=== PATIENT | male | born 1995 | race Caucasian/White ===

== ENCOUNTER 2020-07-16 18:52 | Emergency (ER) | payer MEDICAID, SELFPAY ==
[2020-07-16 19:02] VITALS: BP 149/102; PULSE 107; RESP 14; TEMP 36.6; O2SAT 96
[2020-07-16 20:08] LABS: Abs Immature Grans 0.02 10^3/uL (0.0-0.06); Absolute Basophil Count 0.03 10^3/uL (0.0-0.2); Absolute Eosinophil Count 0.21 10^3/uL (0.0-0.7); Absolute Lymphocyte Count 1.92 10^3/uL (1.2-3.4); Absolute Monocyte Count 1.27 10^3/uL (0.1-0.8); Absolute Neutrophil Count 4.72 10^3/uL (1.2-6.7); Basophils % 0.4; Eosinophils % 2.6; HCT 41.8 % (40.0-50.0); Immature Grans % 0.2; Lymphocytes % 23.5; MCH 29.1 pg (27.0-33.0); MCHC 33.5 % (32.0-36.0); MCV 86.9 fL (80-95); MPV 8.4 fL (8.0-11.0); Monocytes % 15.5; Neutrophils % 57.8; Nucleated RBC 0 %; Platelet Count 271 10^3/uL (130-400); RBC 4.81 10^6/uL (4.36-5.78); RDW 12.1 % (11.8-14.1); RDW-SD 38.8 fL; WBC 8.17 10^3/uL (4.4-10.8)
[2020-07-16 20:18] LABS: ALT 100 U/L (16-63); AST 44 U/L (15-37); Albumin 3.9 g/dL (3.4-5.0); Alkaline Phosphatase 79 U/L (46-116); Anion Gap 6.8 mmol/L (3-11); BUN 14 mg/dL (7-18); Bilirubin, Total 0.4 mg/dL (0.2-1.0); CO2 30.2 mmol/L (21.0-32.0); CREATININE 0.85 mg/dL (0.70-1.30); Chloride 102 mmol/L (98-107); Glucose 83 mg/dL (74-106); Lipase 48 U/L (73-393); Potassium 3.9 mmol/L (3.5-5.1); Sodium 139 mmol/L (136-145); Total Protein 7.4 g/dL (6.4-8.2)
--- NOTE | 2020-07-16 20:34 | DI.CT_ITS ---
EXAM: CT ABDOMEN PELVIS W CLINICAL HISTORY: left abd pain and lt flank pain, abnormal stool. TECHNIQUE: Imaging Protocol: Axial computed tomography images with coronal and sagittal reformatted images were created and reviewed CONTRAST MATERIAL: Intravenous: Omnipaque 350 Contrast volume:100 ml Oral: no COMPARISON: No exams were available for comparison FINDINGS: ABDOMEN: Lung Bases: Normal where visualized. Liver: Mild fatty infiltration no measurable mass. Gallbladder and biliary tract: Contracted gallbladder. No radiodense calculus or dilation. Pancreas: Normal density, no abnormal calcifications or inflammatory process. Spleen: Normal. Kidneys: Normal size, contour and axis. No radiodense stones or obstructive uropathy. No masses seen. Adrenal glands: No masses seen. Abdominal Aorta: Abdominal portion non-dilated. PELVIS: Bladder: Symmetric distention, no gross wall thickening. Bowel: No obstruction or bowel wall thickening. Normal appendix. Large quantity of stool. Peritoneal cavity: No ascites, collection or mesenteric inflammatory response. Bones: Remarkable. Reproductive organs: Within normal limits. Lymph nodes: Unremarkable. Impression: Large quantity of stool. No acute abnormality.. RADIATION DOSE DELIVERED: 921.32mGy.cm Total DLP DATA REPOSITORY: All CT scans at this facility are submitted to the National Radiology Data Registry (NRDR) Dose Index Registry (DIR) with the [employer] (ACR). RADIATION OPTIMIZATION: All CT scans at this facility use at least one of these dose optimization te chniques: automated exposure control; mA and/or kV adjustment per patient size (includes targeted exa ms where dose is matched to clinical indication); or iterative reconstruction.
[2020-07-16] MEDS: Omnipaque 350 MG/ML 100 ML BTL IJ (20:39)
[2020-07-16] MEDS: Normal Saline - Diluent 50 ML VIAL IV (20:39)
[2020-07-16] MEDS: Normal Saline Flush 10 ML SYR IVP (20:40)
--- NOTE | 2020-07-16 20:43 | W.ED.GENAD ---
Discharge Plan Disposition Patient Disposition: HOME Condition: Stable Discharge Details Clinical Impression: Abdominal pain Primary Care Provider: Wilbert Bedoya ED Provider: Neftali Stockton Home Meds and New Rx's Prescriptions: No Action buprenorphine-naloxone [Suboxone] 8-2 mg film 2 film BC Q24H Qty: 30 RF: 0 bupropion HCl [Wellbutrin XL] 300 mg tablet extended release 24 hr 300 mg PO QAM Qty: 30 RF: 11 multivitamin 1 EACH capsule 1 ea PO DAILY RF: 0 [place]-3S/Dha/Epa/Fish Oil [Fish Oil 1,000 mg Softgel] 1 EACH capsule 1 ea PO RF: 0 Discharge Instructions Additional Instructions: your cat scan did not show any concerning findings your liver function tests were minimally elevated, you should advise your primary care of this when you follow up in 1-2 weeks if you have severe worsening pain, persistent vomit or feel more ill return to the emergency department Discharge Data Discharge Date/Time-TO BE ENTERED AT DEPARTURE: 07/16/20 21:11 Medical Decision Making <Baron Hendrix MD - Last Filed: 08/08/20 23:51> 24-year-old male presents with intermittent abdominal pain for the past 2 months, worse over the past 6 days, with concern that he has GI nematode infection. Patient is diffusely tender and firm. Consider acute surgical pathology including bowel perforation. Plan to obtain CT of the abdomen pelvis. Plan to send stool specimen for pathology and will also send ova and parasites. Patient certainly does have anxiety about current condition. I provided reassurance. <Neftali Stockton MD - Last Filed: 07/16/20 21:04> pt's labs show mild increase in lfts otherwise unremarkble, hepatitis panel added. CT negative. When I enter the room the patient has his eyes closed in no distress and awakens to voice easily, and has no abdominal tenderness on exam. Given these findings feel he is stable for d/c. Will have him f/u with pcp and return precautions given Imaging Data Radiologic Study: Attestation: I personally reviewed and interpreted this imaging study as follows: Imaging: CT Scan Radiologist's impression: no acute findings Lab Data Lab results reviewed: Yes I reviewed the patient's lab results. HPI <Baron Hendrix MD - Last Filed: 08/08/20 23:51> General Mode of arrival: ambulatory. Date/Time Provider Initiated Documentation: 07/16/20 19:11. Limitations to Documentation: no limitations. Information obtained by: patient. HPI Narrative: 24-year-old male presents with chief complaint of concern for gastrointestinal worms. Patient states that he believes he has worms in his stool. Patient states he is noticed long thin stringy material in his bowel movements for some time. He bought a stool specimen today that contains some of this material. He also notes that he has abdominal pain. Pain is diffuse worse on the right upper abdomen and flank. Patient states he has had abdominal pain intermittently for months but that it has been worse over the past 6 days. He has no associated fevers. No diarrhea. No nausea or vomiting. Related Data Home Medications Medication Instructions Recorded Confirmed [place]-3S/Dha/Epa/Fish Oil [Fish 1 ea PO 11/13/17 08/12/19 Oil 1,000 mg Softgel] multivitamin 1 ea PO DAILY 01/05/18 08/12/19 buprenorphine 8 mg-naloxone 2 mg 2 film BC Q24H #30 each 02/19/20 02/19/20 sublingual film bupropion HCl 300 mg 24 hr tablet, 300 mg PO QAM #30 tab 02/19/20 02/19/20 extended release Previous Rx's Medication Instructions Recorded buprenorphine 8 mg-naloxone 2 mg 2 film BC Q24H #30 each 02/19/20 sublingual film bupropion HCl 300 mg 24 hr tablet, 300 mg PO QAM #30 tab 02/19/20 extended release Allergies Allergy/AdvReac Type Severity Reaction Status Date / Time No Known Allergies Allergy Unverified 07/16/20 19:06 General Stated Complaint: Abd Prob DORENE: 3 Review of Systems <Baron Hendrix MD - Last Filed: 08/08/20 23:51> All systems reviewed & are unremarkable except as noted in HPI and below Gastrointestinal Gastrointestinal: Reports as per HPI Genitourinary Genitourinary: Denies hematuria, Denies genital lesions, Denies genital pain, Denies dysuria, Denies penile discharge, Denies scrotal swelling, Denies testicular mass and Denies testicular pain Psychiatric Psychiatric: Reports anxiety PFSH <Baron Hendrix MD - Last Filed: 08/08/20 23:51> Family History Mother Depression Diabetes Substance abuse Father , age 56 Alcohol abuse Substance abuse Depression Diabetes Heart disease Sister No problems noted. Brother No problems noted. Social History Smoking/Tobacco Use Status: Current every day Tobacco Type: cigarettes Quit status: has quit before Alcohol Intake: never Drug use: Occasionally Caregiver/Support person: No Household members: spouse Housing: condominium Communication Needs: None Do you need help understanding health information?: Never Pets and animals: Yes Pets and animals: dog(s) Sexually active: Yes Do you think of yourself as: straight/heterosexual Current gender identity: male What is your relationship status?: living with partner How often do you talk on the phone with friends or family?: three or more times per week How often do you get together with friends or relatives?: once per week How often do you attend hinduism or mormonism services?: 1-3 times per year Do you belong to any clubs or organized social groups?: no Panel score (0-1 are the most socially isolated patients): 2 What type of physical activity do you participate in: decline to answer Duration: < 15 minutes/day Frequency: decline to answer Cammy/Jain: None Special cammy needs: No Seatbelt use: always Helmet use: Yes Helmet use: always Drive intox or ride w/intox commercial trailer truck driver: No Do you feel safe at home: Yes Do you feel safe in your relationship?: Yes Exam <Baron Hendrix MD - Last Filed: 08/08/20 23:51> Const General: cooperative and no acute distress HENMT Mouth: moist mucous membranes Eyes Conjunctivae: normal conjunctivae Sclera: normal sclerae Neck Neck: supple Resp Auscultation: clear to auscultation bilaterally, no rales, no rhonchi and no wheezes Cardio Rate: tachycardic Rhythm: regular rhythm Heart Sounds: no murmurs GI Inspection: non-distended Palpation: firm, no guarding, no masses and tender other (rt abd ) Auscultation: normal bowel sounds Skin General skin exam: no rashes or lesions noted Neuro General: patient alert, patient awake and tone normal Extrem General: no edema Psych Appearance: grossly normal Mental Status: mental status grossly normal Affect: anxious affect Course <Baron Hendrix MD - Last Filed: 08/08/20 23:51> Vital Signs Vital signs: Vital Signs Temperature 36.6 C 07/16/20 19:02 Pulse 107 H 07/16/20 19:02 Respiratory Rate 14 07/16/20 19:02 Blood Pressure 149/102 H 07/16/20 19:02 Pulse Oximetry 96 07/16/20 19:02 Temperature 36.6 C 07/16/20 19:02 Temperature Source Skin 07/16/20 19:02 Pulse 107 H 07/16/20 19:02 Respiratory Rate 14 07/16/20 19:02 Respiratory Effort Non-Labored 07/16/20 19:05 Blood Pressure 149/102 H 07/16/20 19:02 Blood Pressure Position Sitting 07/16/20 19:02 Pulse Oximetry 96 07/16/20 19:02 Oxygen Delivery Method Room Air 07/16/20 19:02 Oxygen Flow Rate 0 07/16/20 19:02 Pain Level 4 07/16/20 19:02 Lab/Test Results Lab/Test Results: Laboratory Tests Range/Units 07/16/20 07/16/20 19:56 19:56 WBC (4.4-10.8) 10^3/uL 8.17 RBC (4.36-5.78) 10^6/uL 4.81 Hgb (13.5-17.5) g/dL 14.0 Hct (40.0-50.0) % 41.8 MCV (80-95) fL 86.9 MCH (27.0-33.0) pg 29.1 MCHC (32.0-36.0) % 33.5 RDW (11.8-14.1) % 12.1 Plt Count (130-400) 10^3/uL 271 MPV (8.0-11.0) fL 8.4 Immature Gran % 0.2 Neutrophils % 57.8 Lymphocytes % 23.5 Monocytes % 15.5 Eosinophils % 2.6 Basophils % 0.4 Nucleated RBC % % 0 Absolute Neutrophils (1.2-6.7) 10^3/uL 4.72 Absolute Lymphocytes (1.2-3.4) 10^3/uL 1.92 Absolute Monocytes (0.1-0.8) 10^3/uL 1.27 H Absolute Eosinophils (0.0-0.7) 10^3/uL 0.21 Absolute Basophils (0.0-0.2) 10^3/uL 0.03 Sodium (136-145) mmol/L 139 Potassium (3.5-5.1) mmol/L 3.9 Chloride (98-107) mmol/L 102 Carbon Dioxide (21.0-32.0) mmol/L 30.2 Anion Gap (3-11) mmol/L 6.8 BUN (7-18) mg/dL 14 Creatinine (0.70-1.30) mg/dL 0.85 Estimated GFR/1.73 m2 (mL/min/1.73m2) >= 60.00 Glucose (74-106) mg/dL 83 Calcium (8.5-10.1) mg/dL 9.0 Total Bilirubin (0.2-1.0) mg/dL 0.4 AST (15-37) U/L 44 H ALT (16-63) U/L 100 H Alkaline Phosphatase (46-116) U/L 79 Total Protein (6.4-8.2) g/dL 7.4 Albumin (3.4-5.0) g/dL 3.9 Lipase (73-393) U/L 48 Sign Out <Baron Hendrix MD - Last Filed: 08/08/20 23:51> Sign Out Data: Sign Out Comment: Care signed out to Dr. Stockton. I spoke with him about initial ED presentation course. Plan at signout follow-up on labs, CT of the abdomen pelvis, reassess patient for disposition Last updated by Baron Hendrix MD at 07/16/20 20:46
--- NOTE | 2020-07-16 20:58 | DI.VRAD_ITS ---
PROCEDURE INFORMATION: Exam: CT Abdomen And Pelvis With Contrast Exam date and time: 07/16/2020 7:38 PM Age: 24 years old Clinical indication: Abdominal pain; Localized; Left TECHNIQUE: Imaging protocol: Computed tomography of the abdomen and pelvis with intravenous contrast. Radiation optimization: All CT scans at this facility use at least one of these dose optimization techniques: automated exposure control; mA and/or kV adjustment per patient size (includes targeted exams where dose is matched to clinical indication); or iterative reconstruction. Contrast material: [id number]; Contrast volume: 100 ml; Contrast route: INTRAVENOUS (IV); COMPARISON: No relevant prior studies available. FINDINGS: Liver: There is diffuse decrease in hepatic parenchymal density, consistent with mild fatty infiltration. No mass. Gallbladder and bile ducts: Normal. No calcified stones. No ductal dilation. Pancreas: Normal. No ductal dilation. Spleen: Normal. No splenomegaly. Adrenals: Normal. No mass. Kidneys and ureters: Normal. No hydronephrosis. Stomach and bowel: Unremarkable. No obstruction. No mucosal thickening. There is a moderate to large amount of stool in the colon. Appendix: Normal appendix. Intraperitoneal space: No free intraperitoneal gas. No ascites. Vasculature: Unremarkable. No abdominal aortic aneurysm. Lymph nodes: No adenopathy. Urinary bladder: Unremarkable as visualized. Reproductive: Unremarkable as visualized. Bones/joints: Multilevel Schmorl's nodes. No fracture. Soft tissues: Unremarkable. IMPRESSION: No acute findings. Dictated and Authenticated by: Edgar Sanchez MD. Ordering:ELADIA Draper MD
[2020-07-20 12:59] LABS: Hepatitis A Antibody IgM Negative (Negative); Hepatitis B Core Antibody Negative (Negative); Hepatitis B surface Ag Negative (Negative); Hepatitis C Ab w Rflx HCV PCR Negative (Negative)
--- NOTE | 2020-07-22 12:54 | NUR.NOTE ---
Nursing Note: PAtient called regarding all test results from ED visit. Patient instructed to refer to D/C instructions and contact medical records for all results.
== END 2020-07-16 21:11 | disposition home or self-care (01) ==
PROVIDERS: Student in an Organized Health Care Education/Training Program; Emergency Provider Emergency Medicine; PCP Family Medicine
DX: R10.11 Right upper quadrant pain (principal); R74.01 Elevation of levels of liver transaminase levels; R19.8 Other specified symptoms and signs involving the digestive system and abdomen
CPT/HCPCS: 36415; 80053; 83690; 86704; 86709; 86803; 87340; 99285; 74177; 85025; 87169; 87177; 99284; J3490

== ENCOUNTER 2021-12-15 17:31 | Emergency (ER) | payer MEDICAID, SELFPAY ==
--- NOTE | 2021-12-15 18:00 | NUR.NOTE ---
Nursing Note:Patient stated to [facility] that he could not wait any longer and was leaving without being seen. Might come back tomorrow. Lilly Stephens
== END 2021-12-15 17:58 | disposition left before discharge ==
PROVIDERS: Emergency Provider Physician Assistant; PCP Nurse Practitioner Family
DX: Z53.29 Procedure and treatment not carried out because of patient's decision for other reasons (principal)

== ENCOUNTER 2021-12-27 17:26 | Outpatient (REF) | payer MEDICAID, SELFPAY ==
[2021-12-29 14:21] LABS: Chlamydia Result Negative (Negative); GC Result Negative (Negative)
== END 2021-12-27 17:27 | disposition home or self-care (01) ==
LOC: LBN 17:26
PROVIDERS: PCP Nurse Practitioner Family; Visit Provider Family Medicine
DX: A74.9 Chlamydial infection, unspecified (principal)
CPT/HCPCS: 87491; 87591

== ENCOUNTER 2022-04-12 11:43 | Emergency (ER) | payer MEDICAID, SELFPAY ==
[2022-04-12 11:51] VITALS: BP 137/68; PULSE 85; RESP 16; TEMP 36.7; O2SAT 100
[2022-04-12 12:02] VITALS: RESP 16
--- NOTE | 2022-04-12 12:24 | W.ED.GENAD ---
Discharge Plan Disposition Patient Disposition: HOME Condition: Stable Discharge Details Clinical Impression: Encounter for issue of repeat prescription, Encounter for monitoring Suboxone maintenance therapy Primary Care Provider: Ronen Yi ED Provider: Ruma Yoder Home Meds and New Rx's Prescriptions: New buprenorphine-naloxone 8-2 mg tablet, sublingual 3 tab sublingual DAILY 7 Days Qty: 21 0RF Rx Instructions: Place 3 tabs under tongue x 7 days No Action multivitamin Tablet 1 tab PO DAILY Qty: 90 3RF omega 8-zds-rms-fish oil [Fish Oil] 60-90-500 mg capsule 1 cap PO DAILY Qty: 90 4RF dextroamphetamine-amphetamine [Adderall] 20 mg tablet 20 mg PO DAILY MDD 20mg Qty: 30 0RF [place]-3S/Dha/Epa/Fish Oil [Fish Oil 1,000 mg Softgel] 1 EACH capsule 1 ea PO buprenorphine-naloxone [Suboxone] 8-2 mg film 3 film BC Q24H Rx Instructions: place 1 film on inside of (each) cheek Discharge Instructions Instructions: Buprenorphine/Naloxone (Into the mouth) Additional Instructions: A prescription was sent to the pharmacy on file. Please do not use any illicit drugs while on this medication. Please take the medication as directed. Follow up with primary care provider in 3-5 days. Return to ED sooner if any worsening or concerns. Increase oral fluids. Referrals: Ronen Yi, DISTANCE EDUCATION COORDINATOR [Primary Care Provider] - 3 days Medical Decision Making 18-year-old male presents to the ER request for medication refill. He reports that he now has Suboxone for the last 48 hours. He was prescribed Suboxone by [facility] I was able to find a prescription which was written on April 06. He reports that he has an appointment for follow-up with the [facility] to continue his opioid dependence regimen. He has a past medical history of depression, opiate addiction, PTSD, insomnia, anxiety and history of alcohol dependence. Patient does endorse using fentanyl approximately 25 to 48 hours ago. I did discuss the risks and benefits. I did encourage not using any illicit drugs wellness medication he verbalizes understanding. He states that he has been on Suboxone for the last 5 years and is transitioning to a local clinic. I will prescribe him approximately 7 days of the Suboxone 3 tablets under the tongue I did verify the prescription that was written on the at [facility]. Patient verbalizes understanding. Medical Records Medical records reviewed: Yes I reviewed the patient's medical records. HPI General Mode of arrival: ambulatory. Date/Time Provider Initiated Documentation: 04/12/22 12:00. Limitations to Documentation: no limitations. Information obtained by: patient, RN notes reviewed and old records reviewed. HPI Narrative: 18-year-old male presents to the ER request for medication refill. He reports that he now has Suboxone for the last 48 hours. He was prescribed Suboxone by [facility] I was able to find a prescription which was written on April 06. He reports that he has an appointment for follow-up with the [facility] to continue his opioid dependence regimen. He has a past medical history of depression, opiate addiction, PTSD, insomnia, anxiety and history of alcohol dependence. Related Data Home Medications Medication Instructions Recorded Confirmed [place]-3S/Dha/Epa/Fish Oil [Fish 1 ea PO 11/13/17 12/27/21 Oil 1,000 mg Softgel] multivitamin 1 tab PO DAILY #90 tabs 03/24/21 04/12/22 omega 8-ccn-fte-fish oil 60 mg-90 1 cap PO DAILY #90 caps 03/24/21 04/12/22 mg-500 mg capsule (Fish Oil) dextroamphetamine-amphetamine 20 20 mg PO DAILY #30 tabs 03/28/22 04/12/22 mg tablet (Adderall) buprenorphine 8 mg-naloxone 2 mg 3 film buccal Q24H 04/12/22 04/12/22 sublingual film (Suboxone) buprenorphine 8 mg-naloxone 2 mg 3 tab sublingual DAILY 7 days #21 04/12/22 sublingual tablet tabs Previous Rx's Medication Instructions Recorded multivitamin 1 tab PO DAILY #90 tabs 03/24/21 omega 8-poo-sdm-fish oil 60 mg-90 1 cap PO DAILY #90 caps 03/24/21 mg-500 mg capsule (Fish Oil) dextroamphetamine-amphetamine 20 20 mg PO DAILY #30 tabs 03/28/22 mg tablet (Adderall) buprenorphine 8 mg-naloxone 2 mg 3 tab sublingual DAILY 7 days #21 04/12/22 sublingual tablet tabs Allergies Allergy/AdvReac Type Severity Reaction Status Date / Time No Known Allergies Allergy Verified 04/12/22 11:55 General Stated Complaint: GenMedical DORENE: 4 Review of Systems Narrative: Patient has no medical complaints here for prescription refill. 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 Brother No problems noted. Social History Smoking/Tobacco Use Status: Current every day Tobacco Type: cigarettes Tobacco: How many years used: 10 Quit status: has quit before Second Hand Exposure: Yes Smoking risk assessment performed?: Yes Alcohol Intake: never Drug use: Occasionally Substance use type: marijuana Caregiver/Support person: No Household members: none Housing: apartment Communication Needs: None Do you need help understanding health information?: Never Pets and animals: No Sexually active: Yes Do you think of yourself as: straight/heterosexual What is your relationship status?: living with partner How often do you talk on the phone with friends or family?: three or more times per week How often do you get together with friends or relatives?: once per week How often do you attend spiritism or judaism services?: 1-3 times per year Do you belong to any clubs or organized social groups?: no Panel score (0-1 are the most socially isolated patients): 2 What type of physical activity do you participate in: walking Duration: 30-45 minutes/day Frequency: decline to answer Cammy/Yarsani: None Special cammy needs: No Seatbelt use: always Helmet use: Yes Helmet use: always Drive intox or ride w/intox furniture mover driver: No Do you feel safe at home: Yes Do you feel safe in your relationship?: Yes Exam Narrative Exam Narrative: Constitutional: Alert and oriented x3. Appears stated age. Normal body habitus. Head: Normocephalic, no trauma. Eyes: Pupils PERRL, Red reflex noted, EOM's intact. Eyelids symmetrical without lesions, discharge, or swelling. Chest: RRR, Normal S1, S2, distal pulses intact. Resp: Lungs clear to auscultation bilaterally, no wheezes, rales, or rhonchi. Abdomen: Soft, non-distended, Normoactive bowel sounds all 4 quads. Musculoskeletal: Normal gait, 5/5 strength to all four extremities. Skin: No suspicious rashes or lesions. Capillary refill less than 2 sec. Neurologic: Cranial nerves II-XII intact. Alert and oriented x 3. Motor: No deficits noted. Sensory: Intact bilaterally all 4 extremities. Reflexes: DTR's intact bilaterally.. Hematologic/Lymphatic: No ecchymosis, no lymphadenopathy. Course Vital Signs Vital signs: Vital Signs Temperature 36.7 C 04/12/22 11:51 Pulse 85 04/12/22 11:51 Respiratory Rate 16 04/12/22 11:51 Blood Pressure 137/68 04/12/22 11:51 Pulse Oximetry 100 04/12/22 11:51 Temperature 36.7 C 04/12/22 11:51 Temperature Source Temporal Artery Scan 04/12/22 11:51 Pulse 85 04/12/22 11:51 Respiratory Rate 16 04/12/22 12:02 Respiratory Effort 04/12/22 12:02 Respiratory Depth Normal 04/12/22 12:02 Respiratory Pattern Normal 04/12/22 12:02 Blood Pressure 137/68 04/12/22 11:51 Blood Pressure Position Sitting 04/12/22 11:51 Pulse Oximetry 100 04/12/22 11:51 Oxygen Delivery Method Room Air 04/12/22 11:51 Oxygen Flow Rate 0 04/12/22 11:51 Pain Level 0 04/12/22 11:51 PAWSS Have you Been Recently Intoxicated or Drunk Within the Last 30 days?: Yes Have you Ever Experienced Previous Episodes of Alcohol Withdrawal?: No Have you ever Experienced Withdrawal Seizures?: No Have you ever Experienced Delirium Tremens(DT)s?: No Have you ever undergone Alcohol Rehabilitation Treatment (i.e, inpt ot outpatient treatment programs)?: No Have you ever Experienced Blackouts?: No Have you ever Combined Alcohol with other Downers within the last 90 days?: No Have you ever Combined Alcohol with any other Substance of Abuse during the last 90 days?: No Positive Blood Alcohol level on Presentation? [PCS.BAL]: No Evidence of Increased Autonomic Activity (i.e. HR>120, tremor, sweating, agitation, nausea)?: No Result: 1
[2022-04-12 12:35] VITALS: PULSE 72; RESP 16; O2SAT 99
== END 2022-04-12 12:35 | disposition home or self-care (01) ==
PROVIDERS: Emergency Provider Registered Nurse Emergency; PCP Nurse Practitioner Family
DX: F11.20 Opioid dependence, uncomplicated (principal)
CPT/HCPCS: 99283

== ENCOUNTER 2022-04-21 11:14 | Emergency (ER) | payer MEDICAID, SELFPAY ==
[2022-04-21 11:21] VITALS: BP 137/56; PULSE 85; RESP 18; TEMP 36.5; O2SAT 99
--- NOTE | 2022-04-21 12:05 | ED.GENADUL_ITS ---
Discharge Plan Disposition Patient Disposition: HOME Condition: Stable Discharge Details Clinical Impression: Encounter for monitoring Suboxone maintenance therapy, Encounter for issue of repeat prescription Primary Care Provider: Ronen Yi ED Provider: Gopal Sorenson Home Meds and New Rx's Prescriptions: New buprenorphine-naloxone [Suboxone] 8-2 mg film 3 film buccal Q24H 4 Days Qty: 12 0RF Rx Instructions: place 1 film on inside of (each) cheek Continued multivitamin Tablet 1 tab PO DAILY Qty: 90 3RF omega 0-dii-kcx-fish oil [Fish Oil] 60-90-500 mg capsule 1 cap PO DAILY Qty: 90 4RF dextroamphetamine-amphetamine [Adderall] 20 mg tablet 20 mg PO DAILY MDD 20mg Qty: 30 0RF [place]-3S/Dha/Epa/Fish Oil [Fish Oil 1,000 mg Softgel] 1 EACH capsule 1 ea PO Discontinued buprenorphine-naloxone [Suboxone] 8-2 mg film 3 film BC Q24H Rx Instructions: place 1 film on inside of (each) cheek Discharge Instructions Additional Instructions: Suboxone as directed. Follow-up with your new program on the as already scheduled at 1 PM. Please watch for new or worsening symptoms and return to the ER for any concerns. Discharge Data Discharge Date/Time-TO BE ENTERED AT DEPARTURE: 04/21/22 12:25 Medical Decision Making 26-year-old gentleman presents requesting Suboxone bridge prescription until he is evaluated on April 25 at [facility]. I was able to speak with the clinic to confirm his story. He believes giving him a 4-day supply is reasonable but as he has already received a 7-day supply from our ER I made it very clear to him that he cannot continue missing his appointments to expect refills from the ER as this is not acceptable especially with the medications such as Suboxone. Patient understands and is grateful. He has no acute medical concerns or complaints. Denies recent illness or trauma. Appears well, nontoxic Standard discharge and return precautions were provided. Patient understands, is agreeable to this plan, and has no additional questions or concerns upon di scharge. This documentation was generated using [employer] system, please disregard any oddities of phrase or misspellings. Medical Records Medical records reviewed: Yes I reviewed the patient's medical records. HPI General Mode of arrival: ambulatory . Date/Time Provider Initiated Documentation: 04/21/22 11:29 . Limitations to Documentation: no limitations . Information obtained by: patient . HPI Narrative: This is a 26-year-old gentleman, past medical history that includes opiate abuse now on Suboxone, depression, ADHD, anxiety, presenting to the ER requesting a refill of his Suboxone. He is in the process of relocating to this area and was seen at the [facility]. He is in the process of being evaluated by [facility] but states that they had to change his appointment. He was actually seen here in the ER last week and given a 7-day supply. He did give me permission to speak with the [facility]. He had an appointment today but missed the appointment and they have rescheduled him for intake on April 25. Patient states that his last dose was yesterday. He currently denies any acute medical conc erns or complaints. Denies any withdrawal symptoms. Denies recent illness or trauma. Related Data Home Medications Medication Instructions Recorded Confirmed [place]-3S/Dha/Epa/Fish Oil [Fish 1 ea PO 11/13/17 12/27/21 Oil 1,000 mg Softgel] multivitamin 1 tab PO DAILY #90 tabs 03/24/21 04/12/22 omega 1-vam-iph-fish oil 60 mg-90 1 cap PO DAILY #90 caps 03/24/21 04/12/22 mg-500 mg capsule (Fish Oil) dextroamphetamine-amphetamine 20 20 mg PO DAILY #30 tabs 03/28/22 04/12/22 mg tablet (Adderall) buprenorphine 8 mg-naloxone 2 mg 3 film buccal Q24H 4 days #12 ea 04/21/22 sublingual film (Suboxone) Previous Rx's Medication Instructions Recorded multivitamin 1 tab PO DAILY #90 tabs 03/24/21 omega 2-ybz-ctx-fish oil 60 mg-90 1 cap PO DAILY #90 caps 03/24/21 mg-500 mg capsule (Fish Oil) dextroamphetamine-amphetamine 20 20 mg PO DAILY #30 tabs 03/28/22 mg tablet (Adderall) buprenorphine 8 mg-naloxone 2 mg 3 film buccal Q24H 4 days #12 ea 04/21/22 sublingual film (Suboxone) Allergies Allergy/AdvReac Type Severity Reaction Status Date / Time No Known Allergies Allergy Verified 04/21/22 11:26 General Stated Complaint: Recheck DORENE: 4 Review of Systems Constitutional Constitutional: Denies fever(s) Cardiovascular Cardiovascular: Denies chest pain and Denies dyspnea Respiratory Respiratory: Denies cough and Denies dyspnea Gastrointestinal Gastrointestinal: Denies abdominal pain Integumentary/Breasts Skin/Breast: Denies rash PFSH All Active Problems Encounter for issue of repeat prescription (Acute) Encounter for monitoring Suboxone maintenance therapy (Acute) Abdominal pain (Acute) Cocaine abuse in remission (Acute) Depression (Chronic) Insomnia (Acute 09/16/13) PTSD (post-traumatic stress disorder) (Acute 09/16/13) Smoker (Acute 01/03/13) Adopted (Acute 09/16/13) Depression (Acute 09/16/13) Opiate addiction (Acute 09/16/13) Reactive cervical lymphadenopathy (Acute 01/03/13) TMJ arthralgia (Acute) Anxiety (Acute 11/22/13) 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 Brother No problems noted. Social History Smoking/Tobacco Use Status: Current every day Tobacco Type: cigarettes Tobacco: How many years used: 10 Quit status: has quit before Second Hand Exposure: Yes Smoking risk assessment performed?: Yes Alcohol Intake: never Drug use: Occasionally Substance use type: marijuana Caregiver/Support person: No Household members: none Housing: apartment Communication Needs: None Do you need help understanding health information?: Never Pets and animals: No Sexually active: Yes Do you think of yourself as: straight/heterosexual What is your relationship status?: living with partner How often do you talk on the phone with friends or family?: three or more times per week How often do you get together with friends or relatives?: once per week How often do you attend orthodoxy or jewish services?: 1-3 times per year Do you belong to any clubs or organized social groups?: no Panel score (0-1 are the most socially isolated patients): 2 What type of physical activity do you participate in: walking Duration: 30-45 minutes/day Frequency: decline to answer Cammy/Sabianist: None Special cammy needs: No Seatbelt use: always Helmet use: Yes Helmet use: always Drive intox or ride w/intox company truck driver: No Do you feel safe at home: Yes Do you feel safe in your relationship?: Yes Exam Const General: cooperative, healthy appearing, comfortable and no acute distress Orientation: alert and awake HENMT Head: normal to inspection, normocephalic and atraumatic Face and sinus: normal facial exam Mouth: moist mucous membranes Eyes General: appearance normal, both eyes and all related structures Conjunctivae: conjunctivae normal Neck Neck: normal visual inspection, full ROM, trachea midline and supple Resp Effort & Inspection: normal respiratory effort and able to speak in complete sentences Auscultation: clear to auscultation bilaterally Cardio Rate: regular rate Rhythm: regular rhythm GI Palpation: soft and nontender Skin General skin exam: no rashes or lesions noted Neuro General: patient alert, patient awake, patient oriented x3, moves all extremities and no focal motor deficits Cognition: normal cognition Speech: speech normal Gait: normal gait Psych Appearance: grossly normal Mental Status: mental status grossly normal Course Vital Signs Vital signs: Vital Signs Temperature 36.5 C 04/21/22 11:21 Pulse 85 04/21/22 11:21 Respiratory Rate 18 04/21/22 11:21 Blood Pressure 137/56 L 04/21/22 11:21 Pulse Oximetry 99 04/21/22 11:21 Temperature 36.5 C 04/21/22 11:21 Temperature Source Temporal Artery Scan 04/21/22 11:21 Pulse 85 04/21/22 11:21 Respiratory Rate 18 04/21/22 11:21 Respiratory Effort Non-Labored 04/21/22 11:28 Blood Pressure 137/56 L 04/21/22 11:21 Blood Pressure Position Sitting 04/21/22 11:21 Pulse Oximetry 99 04/21/22 11:21 Oxygen Delivery Method Room Air 04/21/22 11:21 Oxygen Flow Rate 0 04/21/22 11:21
--- NOTE | 2022-04-22 16:24 | CMACTNOTE_ITS ---
- If Service Date Differs Date of service: 04/21/22 Time of Service: 16:24 Care Management Activity Note Elroy presents in the ED requesting a Suboxone bridge prescription until he can be seen at [facility]. Elroy was previously seen in the ED on 04/12/22 and was provided a bridge prescription for Suboxone at that time. At the request of ED provider, GAGE telephones [facility] and speaks with Lyubov who advises Elroy had a 45 minute appointment this morning (04/21/2022) but showed up 45 minutes late for the appointment, so he was unable to be seen. Celina states Elroy was given a new appointment for Monday, April 25, 2022 at 1:00 pm. GAGE relays this information to ED provider and meets with Erloy to discuss barriers to getting to appointments. Elroy says he has reliable transportation but missed the appointment because he was confused about the time of today's appoint ment at [facility]. He knows his rescheduled appointment is for Monday at 1:00 pm and has it written down.
== END 2022-04-21 12:25 | disposition home or self-care (01) ==
PROVIDERS: Emergency Provider Physician Assistant; PCP Nurse Practitioner Family
DX: F11.20 Opioid dependence, uncomplicated (principal)
CPT/HCPCS: 99283

== ENCOUNTER 2022-06-10 13:28 | Emergency (ER) | payer MEDICAID, SELFPAY ==
[2022-06-10 13:31] VITALS: BP 141/69; PULSE 72; RESP 16; TEMP 36.4; O2SAT 100
--- NOTE | 2022-06-10 14:38 | ED.GENADUL_ITS ---
Discharge Plan Disposition Patient Disposition: HOME Condition: Stable Discharge Details Chief Complaint: DrugWithdr/MAT Clinical Impression: Opioid dependence Primary Care Provider: Ronen Yi ED Provider: Raul Wilkes Home Meds and New Rx's Prescriptions: No Action multivitamin Tablet 1 tab PO DAILY Qty: 90 3RF omega 1-nys-nra-fish oil [Fish Oil] 60-90-500 mg capsule 1 cap PO DAILY Qty: 90 4RF dextroamphetamine-amphetamine [Adderall XR] 20 mg capsule,extended release 24hr 20 mg PO DAILY MDD 20mg Qty: 28 0RF buprenorphine-naloxone 8-2 mg tablet, sublingual 8 tab SUBLINGUAL TID Label Comments: PLACE 3 TABLETS EVERY DAY UNDER THE TONGUE FOR 7 DAYS [place]-3S/Dha/Epa/Fish Oil [Fish Oil 1,000 mg Softgel] 1 EACH capsule 1 ea PO Discharge Instructions Instructions: Buprenorphine/Naloxone (Into the mouth) Additional Instructions: Please follow-up with your primary care physician. Please follow-up at clinic. Please return to the emergency department you have any worsening symptoms. Medical Decision Making 26-year-old male history of polysubstance abuse presents requesting a dose of Suboxone as he ran out of his prescription and missed his clinic appointment. Endorses that his clinic is open on Mondays and . Also requesting Suboxone prescription. I have informed patient that I am not trained to prescribe Suboxone and I have encouraged him to follow-up with his clinic and his primary care physician. I will give him a dose of Suboxone here. No evidence of withdrawal at this time such as lacrimation nausea vomiting hypertension tachycardia or acute distress. HPI General Date/Time Provider Initiated Documentation: 06/10/22 14:02 . HPI Narrative: 26-year-old male history of polysubstance abuse currently on Suboxone presents after missing his Suboxone dose and running out of his prescription. Patient endorses that he feels as if he is beginning to withdrawal. Says that his clinic opens on Monday and . Related Data Home Medications Medication Instructions Recorded Confirmed [place]-3S/Dha/Epa/Fish Oil [Fish 1 ea PO 11/13/17 04/28/22 Oil 1,000 mg Softgel] multivitamin 1 tab PO DAILY #90 tabs 03/24/21 06/10/22 omega 4-nlz-ijy-fish oil 60 mg-90 1 cap PO DAILY #90 caps 03/24/21 06/10/22 mg-500 mg capsule (Fish Oil) dextroamphetamine-amphetamine ER 20 mg PO DAILY #28 caps 05/26/22 06/10/22 20 mg 24hr capsule,extend release (Adderall XR) buprenorphine 8 mg-naloxone 2 mg 8 tab sublingual TID 06/10/22 06/10/22 sublingual tablet Previous Rx's Medication Instructions Recorded multivitamin 1 tab PO DAILY #90 tabs 03/24/21 omega 3-ocw-gxn-fish oil 60 mg-90 1 cap PO DAILY #90 caps 03/24/21 mg-500 mg capsule (Fish Oil) dextroamphetamine-amphetamine ER 20 mg PO DAILY #28 caps 05/26/22 20 mg 24hr capsule,extend release (Adderall XR) Allergies Allergy/AdvReac Type Severity Reaction Status Date / Time No Known Allergies Allergy Verified 06/10/22 13:35 General Stated Complaint: DrugWithdr/MAT DORENE: 4 Review of Systems Narrative: Review of Systems Constitutional: negative Eyes: negative ENT: negative Cardiovascular: negative Respiratory: negative Gastrointestinal: negative : negative Musculoskeletal: negative Skin: negative Neurologic: negative Psych: negative PFSH All Active Problems Opioid dependence (Acute) Abdominal pain (Acute) Cocaine abuse in remission (Acute) Depression (Chronic) Insomnia (Acute 09/16/13) PTSD (post-traumatic stress disorder) (Acute 09/16/13) Smoker (Acute 01/03/13) Adopted (Acute 09/16/13) Depression (Acute 09/16/13) Opiate addiction (Acute 09/16/13) Reactive cervical lymphadenopathy (Acute 01/03/13) TMJ arthralgia (Acute) Anxiety (Acute 11/22/13) 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 Brother No problems noted. Social History Smoking/Tobacco Use Status: Current every day Tobacco Type: cigarettes Tobacco: How many years used: 10 Quit status: has quit before Second Hand Exposure: Yes Smoking risk assessment performed?: Yes Alcohol Intake: never Drug use: Current Sobriety Substance use type: marijuana Caregiver/Support person: No Household members: none Housing: apartment Communication Needs: None Do you need help understanding health information?: Never Pets and animals: No Sexually active: Yes Do you think of yourself as: straight/heterosexual What is your relationship status?: living with partner How often do you talk on the phone with friends or family?: three or more times per week How often do you get together with friends or relatives?: once per week How often do you attend temple or presybeterian services?: 1-3 times per year Do you belong to any clubs or organized social groups?: no Panel score (0-1 are the most socially isolated patients): 2 What type of physical activity do you participate in: walking Duration: 30-45 minutes/day Frequency: decline to answer Cammy/Confucianist: None Special cammy needs: No Seatbelt use: always Helmet use: Yes Helmet use: always Drive intox or ride w/intox armor reconnaissance vehicle driver: No Do you feel safe at home: Yes Do you feel safe in your relationship?: Yes Exam Narrative Exam Narrative: Physical Examination General: alert, awake, cooperative, resting comfortably, no acute distress HEENT: normocephalic, atraumatic; PERRL, EOM intact, conjunctiva normal; no nasal discharge; moist mucous membranes, oral and pharyngeal mucosa normal, tolerating secretions Neck: supple, trachea midline; full ROM Chest: normal to inspection Respiratory: normal respiratory effort, speaking in full sentences, clear to auscultation, no wheezing, rales or rhonchi Cardiac: regular rate, regular rhythm, S1S2 intact, no murmurs rubs or gallops GI: abdomen soft, non-tender, non-distended; no palpable mass or hepatosplenomegaly Skin: no lesions, rashes or trauma appreciated Neuro: AAOx3, normal speech, moving all extremities Psych: Appropriate mood and affect Course Vital Signs Vital signs: Vital Signs Temperature 36.4 C L 06/10/22 13:31 Pulse 72 06/10/22 13:31 Respiratory Rate 16 06/10/22 13:31 Blood Pressure 141/69 H 06/10/22 13:31 Pulse Oximetry 100 06/10/22 13:31 Temperature 36.4 C L 06/10/22 13:31 Temperature Source Skin 06/10/22 13:31 Pulse 72 06/10/22 13:31 Respiratory Rate 16 06/10/22 13:31 Respiratory Effort Non-Labored 06/10/22 14:35 Respiratory Pattern Normal 06/10/22 14:35 Blood Pressure 141/69 H 06/10/22 13:31 Blood Pressure Position Sitting 06/10/22 13:31 Pulse Oximetry 100 06/10/22 13:31 Oxygen Delivery Method Room Air 06/10/22 13:31 Oxygen Flow Rate 0 06/10/22 13:31 Pain Level 2 06/10/22 13:31
== END 2022-06-10 15:27 | disposition home or self-care (01) ==
PROVIDERS: Emergency Provider Emergency Medicine; PCP Nurse Practitioner Family
DX: F11.20 Opioid dependence, uncomplicated (principal)
CPT/HCPCS: 99283

== ENCOUNTER 2022-06-12 14:00 | Emergency (ER) | payer MEDICAID, SELFPAY ==
[2022-06-12 14:04] VITALS: BP 158/82; PULSE 104; RESP 16; TEMP 36.9; O2SAT 100
--- NOTE | 2022-06-12 14:15 | ED.GENADUL_ITS ---
Discharge Plan Disposition Patient Disposition: HOME Condition: Stable Discharge Details Chief Complaint: DrugWithdr/MAT Clinical Impression: Opioid dependence Primary Care Provider: Ronen Yi ED Provider: Raul Wilkes Home Meds and New Rx's Prescriptions: No Action multivitamin Tablet 1 tab PO DAILY Qty: 90 3RF omega 7-drj-rak-fish oil [Fish Oil] 60-90-500 mg capsule 1 cap PO DAILY Qty: 90 4RF dextroamphetamine-amphetamine [Adderall XR] 20 mg capsule,extended release 24hr 20 mg PO DAILY MDD 20mg Qty: 28 0RF buprenorphine-naloxone 8-2 mg tablet, sublingual 3 tab SUBLINGUAL TID Label Comments: PLACE 3 TABLETS EVERY DAY UNDER THE TONGUE FOR 7 DAYS [place]-3S/Dha/Epa/Fish Oil [Fish Oil 1,000 mg Softgel] 1 EACH capsule 1 ea PO Discharge Instructions Instructions: Buprenorphine/Naloxone (Into the mouth) Additional Instructions: Please follow-up closely with your clinic, obtain a prescription as an outpatient. Please return to the emergency department for any worsening symptoms. Medical Decision Making 26-year-old male history of opioid abuse, presents requesting Suboxone dose as he missed his clinic appointment last week and has not been able to refill his home Suboxone prescription. Feeling generally unwell, no lacrimation no chills no vomiting however I treated this patient on Monday and told him to return for any worsening symptoms. I have counseled him extensively regarding the need for him to follow-up closely with his clinic and obtain an outpatient prescription for his medication. Patient will be going to the clinic tomorrow. No acute distress. Will be given a dose of Suboxone and discharged home. HPI General Date/Time Provider Initiated Documentation: 06/12/22 14:09 . HPI Narrative: 26-year-old male history of polysubstance abuse presents requesting Suboxone dose, missed clinic appointment last week and therefore has run out of his home Suboxone prescription, was seen here on Monday for dose given early symptoms of opioid withdrawal, currently having similar symptomatology today just feeling unwell. No nausea no vomiting no tearing no chills. Patient states that he will be going to clinic tomorrow and will have a refill for his prescription from that time forward. Related Data Home Medications Medication Instructions Recorded Confirmed [place]-3S/Dha/Epa/Fish Oil [Fish 1 ea PO 11/13/17 04/28/22 Oil 1,000 mg Softgel] multivitamin 1 tab PO DAILY #90 tabs 03/24/21 06/10/22 omega 9-cko-yik-fish oil 60 mg-90 1 cap PO DAILY #90 caps 03/24/21 06/10/22 mg-500 mg capsule (Fish Oil) dextroamphetamine-amphetamine ER 20 mg PO DAILY #28 caps 05/26/22 06/10/22 20 mg 24hr capsule,extend release (Adderall XR) buprenorphine 8 mg-naloxone 2 mg 3 tab sublingual TID 06/10/22 06/12/22 sublingual tablet Previous Rx's Medication Instructions Recorded multivitamin 1 tab PO DAILY #90 tabs 03/24/21 omega 2-mon-lta-fish oil 60 mg-90 1 cap PO DAILY #90 caps 03/24/21 mg-500 mg capsule (Fish Oil) dextroamphetamine-amphetamine ER 20 mg PO DAILY #28 caps 05/26/22 20 mg 24hr capsule,extend release (Adderall XR) Allergies Allergy/AdvReac Type Severity Reaction Status Date / Time No Known Allergies Allergy Verified 06/12/22 14:08 General Stated Complaint: DrugWithdr/MAT DORENE: 5 Review of Systems Narrative: Review of Systems Constitutional: negative Eyes: negative ENT: negative Cardiovascular: negative Respiratory: negative Gastrointestinal: negative : negative Musculoskeletal: negative Skin: negative Neurologic: negative Psych: negative PFSH All Active Problems Opioid dependence (Acute) Opioid dependence (Acute) Abdominal pain (Acute) Cocaine abuse in remission (Acute) Depression (Chronic) Insomnia (Acute 09/16/13) PTSD (post-traumatic stress disorder) (Acute 09/16/13) Smoker (Acute 01/03/13) Adopted (Acute 09/16/13) Depression (Acute 09/16/13) Opiate addiction (Acute 09/16/13) Reactive cervical lymphadenopathy (Acute 01/03/13) TMJ arthralgia (Acute) Anxiety (Acute 11/22/13) Attention deficit disorder predominant inattentive type (Acute 12/26/14) Depression (Acute 12/26/14) reacted poorly to fluoxetine - jittery History of alcohol dependence (Acute 11/03/17) History of opioid abuse (Acute 11/03/17) Jaw pain (Acute 02/14/14) Paranoia (Acute 06/16/15) admit [facility]- 05/30 Tobacco use (Acute 12/04/17) Medical History Family history of coronary artery disease Family history of diabetes mellitus (DM) Family History Mother Depression Diabetes Substance abuse Father , age 56 Alcohol abuse Substance abuse Depression Diabetes Heart disease Sister No problems noted. Brother No problems noted. Social History Smoking/Tobacco Use Status: Current every day Tobacco Type: cigarettes Tobacco: How many years used: 10 Quit status: has quit before Second Hand Exposure: Yes Smoking risk assessment performed?: Yes Alcohol Intake: never Drug use: Current Sobriety Substance use type: marijuana Caregiver/Support person: No Household members: none Housing: apartment Communication Needs: None Do you need help understanding health information?: Never Pets and animals: No Sexually active: Yes Do you think of yourself as: straight/heterosexual What is your relationship status?: living with partner How often do you talk on the phone with friends or family?: three or more times per week How often do you get together with friends or relatives?: once per week How often do you attend nondenominational or anglican services?: 1-3 times per year Do you belong to any clubs or organized social groups?: no Panel score (0-1 are the most socially isolated patients): 2 What type of physical activity do you participate in: walking Duration: 30-45 minutes/day Frequency: decline to answer Cammy/Mosque: None Special cammy needs: No Seatbelt use: always Helmet use: Yes Helmet use: always Drive intox or ride w/intox 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 Do you feel safe at home: Yes Do you feel safe in your relationship?: Yes Exam Narrative Exam Narrative: Physical Examination General: alert, awake, cooperative, resting comfortably, no acute distress HEENT: normocephalic, atraumatic; PERRL, EOM intact, conjunctiva normal; no nasal discharge; moist mucous membranes, oral and pharyngeal mucosa normal, tolerating secretions Neck: supple, trachea midline; full ROM Chest: normal to inspection Respiratory: normal respiratory effort, speaking in full sentences, clear to auscultation, no wheezing, rales or rhonchi Cardiac: regular rate, regular rhythm, S1S2 intact, no murmurs rubs or gallops GI: abdomen soft, non-tender, non-distended; no palpable mass or hepatosplenomegaly Skin: no lesions, rashes or trauma appreciated Neuro: AAOx3, normal speech, moving all extremities Psych: Appropriate mood and affect Course Vital Signs Vital signs: Vital Signs Temperature 36.9 C 06/12/22 14:04 Pulse 104 H 06/12/22 14:04 Respiratory Rate 16 06/12/22 14:04 Blood Pressure 158/82 H 06/12/22 14:04 Pulse Oximetry 100 06/12/22 14:04 Temperature 36.9 C 06/12/22 14:04 Temperature Source Temporal Artery Scan 06/12/22 14:04 Pulse 104 H 06/12/22 14:04 Respiratory Rate 16 06/12/22 14:04 Respiratory Effort Non-Labored 06/12/22 14:06 Blood Pressure 158/82 H 06/12/22 14:04 Blood Pressure Position Sitting 06/12/22 14:04 Pulse Oximetry 100 06/12/22 14:04 Oxygen Delivery Method Room Air 06/12/22 14:04 Oxygen Flow Rate 0 06/12/22 14:04 Pain Level 0 06/12/22 14:04
[2022-06-12] MEDS: Buprenorphine/Naloxone 12 mg/3 mg FILM 1 EACH SL (14:18)
== END 2022-06-12 14:24 | disposition home or self-care (01) ==
PROVIDERS: Emergency Provider Emergency Medicine; PCP Nurse Practitioner Family
DX: F11.20 Opioid dependence, uncomplicated (principal); F17.210 Nicotine dependence, cigarettes, uncomplicated
CPT/HCPCS: 99283; 99284

== ENCOUNTER 2022-08-18 06:42 | Emergency (ER) | payer MEDICAID, SELFPAY ==
[2022-08-18 06:45] VITALS: BP 157/75; PULSE 98; RESP 18; TEMP 37.1; O2SAT 100
--- NOTE | 2022-08-18 07:03 | ED.GENADUL_ITS ---
Discharge Plan Disposition Patient Disposition: HOME Condition: Improving Discharge Details Chief Complaint: OD/Poison Clinical Impression: Skin irritation Primary Care Provider: Ronen Yi ED Provider: Raul Wilkes Home Meds and New Rx's Prescriptions: No Action multivitamin Tablet 1 tab PO DAILY Qty: 90 3RF omega 1-rjh-bog-fish oil [Fish Oil] 60-90-500 mg capsule 1 cap PO DAILY Qty: 90 4RF dextroamphetamine-amphetamine [Adderall XR] 20 mg capsule,extended release 24hr 20 mg PO DAILY MDD 20mg Qty: 28 0RF buprenorphine-naloxone 8-2 mg tablet, sublingual 3 tab SUBLINGUAL TID Label Comments: PLACE 3 TABLETS EVERY DAY UNDER THE TONGUE FOR 7 DAYS [place]-3S/Dha/Epa/Fish Oil [Fish Oil 1,000 mg Softgel] 1 EACH capsule 1 ea PO Discharge Instructions Additional Instructions: Please follow-up with your primary care physician. Please rinse with warm clean water. Medical Decision Making 26-year-old male presents with subjective skin irritation he believes someone is putting bleach into his shampoo. Patient has no skin lesions that are visible. No respiratory distress. Patient is normotensive no hypoxia. Normal voice tolerating secretions. Patient requesting that we test his shampoo bottle for bleach. I counseled patient that we are not toxicologic testing center and do not have the capabilities to test his shampoo. Counseled him to continue to rinse with clean fresh water to help with skin irritation. Will dose dexamethasone for subjective symptomatology. No evidence of chemical burn or chemical respiratory irritation. HPI General Date/Time Provider Initiated Documentation: 08/18/22 06:44 . HPI Narrative: 26-year-old male presents with skin irritation he believes someone is putting bleach in his shampoo. Related Data Home Medications Medication Instructions Recorded Confirmed [place]-3S/Dha/Epa/Fish Oil [Fish 1 ea PO 11/13/17 04/28/22 Oil 1,000 mg Softgel] multivitamin 1 tab PO DAILY #90 tabs 03/24/21 06/10/22 omega 3-gro-tsz-fish oil 60 mg-90 1 cap PO DAILY #90 caps 03/24/21 06/10/22 mg-500 mg capsule (Fish Oil) buprenorphine 8 mg-naloxone 2 mg 3 tab sublingual TID 06/10/22 06/12/22 sublingual tablet dextroamphetamine-amphetamine ER 20 mg PO DAILY #28 caps 07/22/22 20 mg 24hr capsule,extend release (Adderall XR) Previous Rx's Medication Instructions Recorded multivitamin 1 tab PO DAILY #90 tabs 03/24/21 omega 6-izr-vab-fish oil 60 mg-90 1 cap PO DAILY #90 caps 03/24/21 mg-500 mg capsule (Fish Oil) dextroamphetamine-amphetamine ER 20 mg PO DAILY #28 caps 07/22/22 20 mg 24hr capsule,extend release (Adderall XR) Allergies Allergy/AdvReac Type Severity Reaction Status Date / Time No Known Allergies Allergy Verified 06/12/22 14:08 General Stated Complaint: OD/Poison DORENE: 3 Review of Systems Narrative: Review of Systems Constitutional: negative Eyes: negative ENT: negative Cardiovascular: negative Respiratory: negative Gastrointestinal: negative : negative Musculoskeletal: negative Skin: Skin irritation Neurologic: negative Psych: negative PFSH All Active Problems Skin irritation (Acute) Abdominal pain (Acute) Cocaine abuse in remission (Acute) Depression (Chronic) Insomnia (Acute 09/16/13) PTSD (post-traumatic stress disorder) (Acute 09/16/13) Smoker (Acute 01/03/13) Adopted (Acute 09/16/13) Depression (Acute 09/16/13) Opiate addiction (Acute 09/16/13) Reactive cervical lymphadenopathy (Acute 01/03/13) TMJ arthralgia (Acute) Anxiety (Acute 11/22/13) 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 Brother No problems noted. Social History Smoking/Tobacco Use Status: Current every day Tobacco Type: cigarettes Tobacco: How many years used: 10 Quit status: has quit before Second Hand Exposure: Yes Smoking risk assessment performed?: Yes Alcohol Intake: never Drug use: Daily Substance use type: marijuana Caregiver/Support person: No Household members: none Housing: apartment Communication Needs: None Do you need help understanding health information?: Never Pets and animals: No Sexually active: Yes Do you think of yourself as: straight/heterosexual What is your relationship status?: living with partner How often do you talk on the phone with friends or family?: three or more times per week How often do you get together with friends or relatives?: once per week How often do you attend denominational or evangelical services?: 1-3 times per year Do you belong to any clubs or organized social groups?: no Panel score (0-1 are the most socially isolated patients): 2 What type of physical activity do you participate in: walking Duration: 30-45 minutes/day Frequency: decline to answer Cammy/Rastafari: None Special cammy needs: No Seatbelt use: always Helmet use: Yes Helmet use: always Drive intox or ride w/intox snaker tractor driver: No Do you feel safe at home: Yes Do you feel safe in your relationship?: Yes Exam Narrative Exam Narrative: Physical Examination General: alert, awake, cooperative, appears anxious HEENT: normocephalic, atraumatic; PERRL, EOM intact, conjunctiva normal; no nasal discharge; moist mucous membranes, oral and pharyngeal mucosa normal, tolerating secretions Neck: supple, trachea midline; full ROM Chest: normal to inspection Respiratory: normal respiratory effort, speaking in full sentences, clear to auscultation, no wheezing, rales or rhonchi Cardiac: regular rate, regular rhythm, S1S2 intact, no murmurs rubs or gallops GI: abdomen soft, non-tender, non-distended; no palpable mass or hepatosplenomegaly Skin: no lesions, rashes or trauma appreciated Neuro: AAOx3, normal speech, moving all extremities Psych: Anxiety Course Vital Signs Vital signs: Vital Signs Temperature 37.1 C 08/18/22 06:45 Pulse 98 H 08/18/22 06:45 Respiratory Rate 18 08/18/22 06:45 Blood Pressure 157/75 H 08/18/22 06:45 Pulse Oximetry 100 08/18/22 06:45 Temperature 37.1 C 08/18/22 06:45 Temperature Source Tympanic 08/18/22 06:45 Pulse 98 H 08/18/22 06:45 Respiratory Rate 18 08/18/22 06:45 Respiratory Effort 08/18/22 06:48 Respiratory Depth Normal 08/18/22 06:48 Respiratory Pattern Normal 08/18/22 06:48 Blood Pressure 157/75 H 08/18/22 06:45 Blood Pressure Position Supine 08/18/22 06:45 Pulse Oximetry 100 08/18/22 06:45 Oxygen Delivery Method Room Air 08/18/22 06:45 Oxygen Flow Rate 0 08/18/22 06:45 Pain Level 0 08/18/22 06:45
[2022-08-18] MEDS: Dexamethasone 10 MG/ML VIAL IVP (07:10)
[2022-08-18 07:20] VITALS: BP 132/88; PULSE 78; RESP 18; TEMP 36.8; O2SAT 98
== END 2022-08-18 07:15 | disposition home or self-care (01) ==
LOC: ER 07:08
PROVIDERS: Emergency Provider Emergency Medicine; PCP Nurse Practitioner Family
DX: L98.8 Other specified disorders of the skin and subcutaneous tissue (principal)
CPT/HCPCS: 99283; 99282; J1100

== ENCOUNTER 2023-08-15 12:22 | Emergency (ER) | payer MEDICAID, SELFPAY ==
[2023-08-15 12:49] VITALS: BP 179/94; PULSE 74; RESP 20; TEMP 37; O2SAT 99
--- NOTE | 2023-08-15 12:53 | W.ED.GENAD ---
Discharge Plan Disposition Patient Disposition: Home Condition: Stable Discharge Details Clinical Impression: Difficulty refilling prescriptions Primary Care Provider: Ronen Yi ED Provider: Roland Patterson Home Meds and New Rx's Prescriptions: Continued buprenorphine 300 mg/1.5 mL solution, extended rel syringe 300 mg subcut QMONTH Qty: 1.5 0RF triamcinolone acetonide 0.1 % cream 1 applic topical BID Qty: 30 0RF dextroamphetamine-amphetamine 20 mg tablet 20 mg PO DAILY MDD 20mg Qty: 28 0RF Discharge Instructions Instructions: Buprenorphine/Naloxone (Into the mouth) Additional Instructions: You were seen in the emergency department for your request for Suboxone, you have multiple care providers in the community both at [facility], and [facility]- these facilities are open mid-week. This is not ideal use of the Emergency Room as there is no medical emergency. Please seek refills at your established suboxone providers. Referrals: [facility] [Provider Group] [facility] [Outside] Ronen Yi, SYSTEM CONFIGURATION SPECIALIST [Primary Care Provider] - Medical Decision Making This dictation utilizes [id number] dictation software and may contain unedited grammatical errors. 27 y/o M presents to ED today with a chief complaint of withdrawal from suboxone - subcutaneous shot has run out that he had been receiving from detox and he has not set up outpatient or PCP follow-up until today. Onset and characteristics include weeks onset, recent detox admit for opiate use. Patient has relevant history of opiate use. Family and social history: substance abuse history. Pertinent exam findings / vital signs include benign cardiopulmonary status, neuro intact, not agitated, stable vitals, nontoxic. Differential / pathologies of concern include inappropriate use of emergency department, refill request, opiate withdrawal. Diagnostic studies of: -none, no major complaints. Interventions of: -one dose of suboxone here. ED Course: Patient seen and discharged from triage. Findings not consistent with severe opiate withdrawal, patient has no other medical complaints. Disposition of Difficulty Refilling Prescriptions. Assessment/Plan: Counseled the patient on appropriate use of the emergency department for nonemergent issue while his other providers that have provided him Suboxone are open for business during normal business hours midweek days. I counseled him that we provided him 1 dose Suboxone and advised to follow-up by calling his primary care provider and to utilize the emergency room for emergency problems only. Patient verbalized understanding of the plan and return to ED criteria and engaged in shared decision making. HPI General Date/Time Provider Initiated Documentation: 08/15/23 12:38. HPI Narrative: 27 year-old male presents to ED today by POV/ambulating with a chief complaint of request for suboxone- states he was on monthly subcutaneous injections but has been out for a long time and the shot has worn off- he has PCP with [facility] who said they could not see him for 2 weeks for this issue, and was previously given a supply from [facility] with onset ongoing for weeks. Quality described as wants to get ahead of his withdrawals so he does not relapse, no radiation to chest pain, active heroin use, shakiness, nausea/vomiting, insomnia. Severity is described as moderate. Palliating factors include nothing specific attempted. Provoking factors include nothing specific. Events leading up to the incident/Associated Symptoms: Patient does not endorse any emergent medical condition. Patient not anticoagulated. Related Data Home Medications Medication Instructions Recorded Confirmed buprenorphine 300 mg/1.5 mL 300 mg (1.5 mL) subcut QMONTH #1.5 04/20/23 08/15/23 solution,exten.rel.subcutaneous mL syringe triamcinolone acetonide 0.1 % 1 applic topical BID #30 grams 04/20/23 08/15/23 topical cream dextroamphetamine-amphetamine 20 20 mg PO DAILY #28 tabs 05/18/23 08/15/23 mg tablet Previous Rx's Medication Instructions Recorded buprenorphine 300 mg/1.5 mL 300 mg (1.5 mL) subcut QMONTH #1.5 04/20/23 solution,exten.rel.subcutaneous mL syringe triamcinolone acetonide 0.1 % 1 applic topical BID #30 grams 04/20/23 topical cream dextroamphetamine-amphetamine 20 20 mg PO DAILY #28 tabs 05/18/23 mg tablet Allergies Allergy/AdvReac Type Severity Reaction Status Date / Time No Known Allergies Allergy Verified 08/15/23 12:52 General Stated Complaint: Recheck DORENE: 4 Review of Systems All systems reviewed & are unremarkable except as noted in HPI and below PFSH All Active Problems Difficulty refilling prescriptions (Acute) Nasal septal deviation (Acute) Abnormal stools (Acute) Abdominal pain (Acute) Cocaine abuse in remission (Acute) Depression (Chronic) Insomnia (Acute 12/02/13) PTSD (post-traumatic stress disorder) (Acute 09/16/13) Smoker (Acute 01/03/13) Adopted (Acute 09/16/13) Depression (Acute 09/16/13) Opiate addiction (Acute 09/16/13) Reactive cervical lymphadenopathy (Acute 01/03/13) TMJ arthralgia (Acute) Anxiety (Acute 11/22/13) 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 Brother No problems noted. Social History Smoking/Tobacco Use Status: Current every day Tobacco Type: cigarettes Tobacco: How many years used: 10 Quit status: has quit before Second Hand Exposure: Yes Smoking risk assessment performed?: Yes Alcohol Intake: never Drug use: Daily Substance use type: marijuana Caregiver/Support person: No Household members: none Housing: apartment Communication Needs: None Do you need help understanding health information?: Never Pets and animals: No Sexually active: Yes Do you think of yourself as: straight/heterosexual What is your relationship status?: living with partner How often do you talk on the phone with friends or family?: three or more times per week How often do you get together with friends or relatives?: once per week How often do you attend rastafarian or latter day services?: 1-3 times per year Do you belong to any clubs or organized social groups?: no Panel score (0-1 are the most socially isolated patients): 2 What type of physical activity do you participate in: walking Duration: 30-45 minutes/day Frequency: decline to answer Cammy/Cheondoism: None Special cammy needs: No Seatbelt use: always Helmet use: Yes Helmet use: always Drive intox or ride w/intox mobile lounge driver: No Do you feel safe at home: Yes Do you feel safe in your relationship?: Yes Exam Narrative Exam Narrative: GENERAL APPEARANCE: Well-nourished, non-toxic, awake and alert, atraumatic, no acute distress. SKIN: Warm, pink, dry, intact, without rashes/lesions/ulcerations. HEAD: Normocephalic, atraumatic, normal hair distribution for gender/age. EYES: Pupils PERRLA, EOMs intact without nystagmus, normal conjunctiva, no exudates on lids/lashes. ENT: Nares patent, no circumoral cyanosis, no facial swelling NECK: Supple, trachea midline, painless cervical ROM. LUNGS/CHEST: Non-labored respirations, normal A/P diameter, symmetrical expansion, no chest wall deformity HEART (CV/PV): No peripheral edema, no JVD. ABDOMEN: Soft, non-distended, no guarding. MSK: Normal ROM, no swelling/deformity to bilateral UEs or LEs, moving all extremities without weakness, no cyanosis, spine midline without tenderness, normal curvature. NEURO: Mental Status AAOx4 - alert to person, place, time, events No facial droop, no forehead involvement. Motor: No focal weakness - strength 5/5 in bilateral UEs and LEs, proximal and distal, symmetric. Sensory: sensation intact to light touch globally. Gait normal: patient ambulated without ataxia into ED room. PSYCH: euthymic, cooperative, pleasant, appropriate speech Course Vital Signs Vital signs: Vital Signs Temperature 37 C 08/15/23 12:49 Pulse 74 08/15/23 12:49 Respiratory Rate 20 08/15/23 12:49 Blood Pressure 179/94 H 08/15/23 12:49 Pulse Oximetry 99 08/15/23 12:49 Temperature 37 C 08/15/23 12:49 Temperature Source Oral 08/15/23 12:49 Pulse 74 08/15/23 12:49 Respiratory Rate 20 08/15/23 12:49 Blood Pressure 179/94 H 08/15/23 12:49 Blood Pressure Position Sitting 08/15/23 12:49 Pulse Oximetry 99 08/15/23 12:49 Oxygen Delivery Method Room Air 08/15/23 12:49 Oxygen Flow Rate 0 08/15/23 12:49
[2023-08-15] MEDS: Buprenorphine/Naloxone 8 mg/2 mg FILM 1 EACH SL (13:09)
== END 2023-08-15 13:11 | disposition home or self-care (01) ==
PROVIDERS: Emergency Provider Physician Assistant; PCP Nurse Practitioner Family
DX: F11.23 Opioid dependence with withdrawal (principal); F32.A Depression, unspecified; Z72.0 Tobacco use
CPT/HCPCS: 99283; 99284

== ENCOUNTER 2024-04-24 13:53 | Emergency (ER) | payer MEDICAID, SELFPAY ==
[2024-04-24 13:56] VITALS: BP 128/56; PULSE 60; RESP 16; TEMP 36.6; O2SAT 98
--- NOTE | 2024-04-24 14:00 | DI.US_ITS ---
Exam(s) US LOWER EXTREMITY VENOUS RT EXAM: US LOWER EXTREMITY VENOUS RT CLINICAL HISTORY: swelling right calf, pain into foot. TECHNIQUE: Lower extremity venous ultrasound performed using grayscale, color-flow, and spectral Do ppler analysis. COMPARISON: No exams were available for comparison FINDINGS: The common femoral, femoral and popliteal veins demonstrate normal compressibility, augmentation, and color Doppler. The posterior tibial veins are patent. No saphenous vein thrombosis or other superfi cial venous thrombosis is seen. No hematoma or Hernadez's cyst is seen. Normal appearing groin lymph n odes. Subcutaneous edema in lower legs. IMPRESSION: Soft tissue edema. No evidence of DVT. DATA REPOSITORY:
--- NOTE | 2024-04-24 14:04 | W.ED.GENAD ---
Discharge Plan Discharge Details Chief Complaint: Cellulitis Primary Care Provider: Ronen Yi ED Provider: Vidya Ojeda Home Meds and New Rx's Prescriptions: No Action buprenorphine 300 mg/1.5 mL solution, extended rel syringe 300 mg subcut QMONTH Qty: 1.5 0RF HPI General Date/Time Provider Initiated Documentation: 04/24/24 14:03. Limitations to Documentation: no limitations. Information obtained by: patient and RN notes reviewed. History of Present Illness 28 year old M presents to the emergency department with the chief complaint of laceration right ankle, erythema, pain, swelling, described as moderate, with intensity rated at 4. Quality is described as aching, and is localized to the right and lower extremity. Patient proximal (pain radiating into right calf). Patient started experiencing this day(s) and it has been constant. Immobilization improves symptom(s), Movement worsens symptoms . Patient notes no other symptoms.. Patient did receive the following treatments prior to arrival, none Related Data Home Medications Medication Instructions Recorded Confirmed buprenorphine 300 mg/1.5 mL 300 mg (1.5 mL) subcut QMONTH #1.5 04/20/23 04/24/24 solution,exten.rel.subcutaneous mL syringe Previous Rx's Medication Instructions Recorded buprenorphine 300 mg/1.5 mL 300 mg (1.5 mL) subcut QMONTH #1.5 04/20/23 solution,exten.rel.subcutaneous mL syringe Allergies Allergy/AdvReac Type Severity Reaction Status Date / Time No Known Allergies Allergy Verified 04/24/24 13:59 General Stated Complaint: Cellulitis DORENE: 3 Review of Systems Constitutional Constitutional: Reports as per HPI, Denies chills and Denies fever(s) Musculoskeletal Musculoskeletal: Reports as per HPI Integumentary/Breasts Skin/Breast: Reports as per HPI Neurologic Neurologic: Reports as per HPI and Denies sensory deficit Exam Const General: cooperative, healthy appearing, comfortable, no acute distress and well developed Nutritional Appearance: average body habitus and well nourished Orientation: alert and awake Resp Effort & Inspection: normal respiratory effort, able to speak in complete sentences and no respiratory distress Cardio Rate: regular rate Rhythm: regular rhythm Skin Trauma: laceration Neuro General: patient alert and patient awake Cognition: normal cognition Speech: speech normal Gait: antalgic Motor: muscle tone normal throughout and strength 5/5 throughout Sensory Exam: no sensory deficits noted Extrem Ankle/foot/toe images: 1. Area V-shaped flap laceration. Does not appear to be a deep wound, I am not able to visualize any tendon. Normal Mota test. 2+ distal pulses. Sensation is intact. Does have nonpitting edema in the foot and calf. He does have pain with palpation of the calf and a positive Homans' sign. Area around the wound is erythematous, warm and tender. No drainage. No palpable fluctuance. Course Vital Signs Vital signs: Vital Signs Temperature 36.6 C 04/24/24 13:56 Pulse 60 04/24/24 13:56 Respiratory Rate 16 04/24/24 13:56 Blood Pressure 128/56 L 04/24/24 13:56 Pulse Oximetry 98 04/24/24 13:56 Temperature 36.6 C 04/24/24 13:56 Pulse 60 04/24/24 13:56 Respiratory Rate 16 04/24/24 13:56 Blood Pressure 128/56 L 04/24/24 13:56 Pulse Oximetry 98 04/24/24 13:56 Pain Level 4 04/24/24 13:56 Medical Decision Making Patient is a pleasant 28-year-old male without significant past medical history presenting today with chief complaint of infection in the posterior aspect of the right ankle over the Achilles tendon. He reports that around 4 days ago, while ambulating, he stepped on a piece of glass from a broken sarahi jar. Denies other injury at the time of the incident. Denies any fevers or chills. States he does have some altered sensation in the calf which he attributes to swelling that has extended from the foot into the calf. However, he denies any altered sensation in the foot itself. Denies any significant pain. Has noted increased swelling and redness. Patient denies any IV drug use. On exam, patient appears nontoxic. He is resting comfortably no acute distress, hemodynamically stable. He has an area of erythema around a flap appearing laceration of the right Achilles. The Achilles is palpable, found to be intact with no abnormal Mota test. He has no calf tenderness with palpation. Sensation is intact but reported to be different than the other side. However, objectively I do not note a difference. He does have some surrounding erythema. 2+ distal pulses. Good range of motion of the ankle. Concern primarily for cellulitis associated with a wound in the posterior ankle. However, given the location and the onset of swelling, consider posttraumatic DVT, deeper space infection, will obtain baseline labs as well as ultrasound and x-ray. Discussed this with the patient who is in agreement. We also discussed imaging to ensure no retained foreign body. FINDINGS: The common femoral, femoral and popliteal veins demonstrate normal compressibility, augmentation, and color Doppler. The posterior tibial veins are patent. No saphenous vein thrombosis or other superficial venous thrombosis is seen. No hematoma or Hernadez's cyst is seen. Normal appearing groin lymph nodes. Subcutaneous edema in lower legs. IMPRESSION: Soft tissue edema. No evidence of DVT. Labs reviewed. No leukocytosis. Stable H&H. ESR within normal limits. CRP slightly elevated at 1.09. BONES: No acute fracture is present. No bony destructive lesion is seen. JOINTS: The ankle mortise is normally aligned. SOFT TISSUE: There is a defect at the skin surface posteriorly approximately 2.3 cm above the calcaneus on the lateral view. This likely reflects area of laceration. There is a 1-2 mm density in the soft tissues in this region which may represent a foreign body. There is soft tissue swelling posterior to the calcaneus which appears represent the Achilles tendon shadow. Please correlate clinically. If there is concern for Achilles tendon tear, MRI should be considered. IMPRESSION: 1. Findings of a soft tissue laceration approximately 2.3 cm above the calcaneus posteriorly. 2. 1-2 mm density in the soft tissues in this region 2.4 cm above the calcaneus which may represent a tiny foreign body. 3. Findings suggestive soft tissue thickening of the distal Achilles tendon. If there is concern for Achilles tendon tear, MRI should be considered. Awaiting call back from ortho. I did reevaluate the patient and I do not see any evidence to suggest a Achilles tendon rupture. However, given the location, area of tenderness and findings above, consider an infection in the Achilles tendon. Will obtain a CT to evaluate for infection as unable to obtain an MRI at this time. At the end of my shift, care transition to Lyubov Douglas NP, with CT and orthopedic evaluation pending. Patient has received some IV fluids as well as IV antibiotics. 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 Brother No problems noted. Social History Smoking/Tobacco Use Status: Current every day Tobacco Type: cigarettes Tobacco: How many years used: 10 Quit status: has quit before Second Hand Exposure: Yes Smoking risk assessment performed?: Yes Alcohol Intake: never Drug use: Occasionally Substance use type: crack/cocaine Caregiver/Support person: No Household members: none Housing: apartment Communication Needs: None Do you need help understanding health information?: Never Pets and animals: No Sexually active: Yes Do you think of yourself as: straight/heterosexual What is your relationship status?: living with partner How often do you talk on the phone with friends or family?: three or more times per week How often do you get together with friends or relatives?: once per week How often do you attend mandaen or congregational services?: 1-3 times per year Do you belong to any clubs or organized social groups?: no Panel score (0-1 are the most socially isolated patients): 2 What type of physical activity do you participate in: walking Duration: 30-45 minutes/day Frequency: decline to answer Cammy/Religious: None Special cammy needs: No Seatbelt use: always Helmet use: Yes Helmet use: always Drive intox or ride w/intox box truck driver: No Do you feel safe at home: Yes Do you feel safe in your relationship?: Yes Sign Out Sign Out Data: Sign Out Comment: Care transitioned with CT results and orthopedic consult pending. Concerned that laceration over achilles may have lead to deeper infection . Receiving IV abx, hemodynamically stable. Last updated by Vidya Ojeda PA at 04/24/24 16:37
--- NOTE | 2024-04-24 14:15 | DI.RAD_ITS ---
Exam(s) XR ANKLE RT COMPLETE EXAM: XR ANKLE RT COMPLETE CLINICAL HISTORY: laceration posterior right ankle, ?FB. TECHNIQUE: 2D digital imaging was performed of the right ankle. Three images were obtained. AP, la teral and oblique views were obtained. COMPARISON: No exams were available for comparison FINDINGS: BONES: No acute fracture is present. No bony destructive lesion is seen. JOINTS: The ankle mortise is normally aligned. SOFT TISSUE: There is a defect at the skin surface posteriorly approximately 2.3 cm above the calcane us on the lateral view. This likely reflects area of laceration. There is a 1-2 mm density in the s oft tissues in this region which may represent a foreign body. There is soft tissue swelling posteri or to the calcaneus which appears represent the Achilles tendon shadow. Please correlate clinically. If there is concern for Achilles tendon tear, MRI should be considered. IMPRESSION: 1. Findings of a soft tissue laceration approximately 2.3 cm above the calcaneus posteriorly. 2. 1-2 mm density in the soft tissues in this region 2.4 cm above the calcaneus which may represent a tiny foreign body. 3. Findings suggestive soft tissue thickening of the distal Achilles tendon. If there is concern for Achilles tendon tear, MRI should be considered. DATA REPOSITORY: RADIATION DOSE DELIVERED:
[2024-04-24 14:29] LABS: Abs Immature Grans 0.03 10^3/uL (0.0-0.06); Absolute Basophil Count 0.05 10^3/uL (0.0-0.2); Absolute Eosinophil Count 0.26 10^3/uL (0.0-0.7); Absolute Lymphocyte Count 1.63 10^3/uL (1.2-3.4); Absolute Monocyte Count 0.81 10^3/uL (0.1-0.8); Absolute Neutrophil Count 6.73 10^3/uL (1.2-6.7); Basophils % 0.5 %; Eosinophils % 2.7 %; HCT 40.5 % (40.0-50.0); HGB 13.6 g/dL (13.5-17.5); Immature Grans % 0.3 %; Lymphocytes % 17.1 %; MCHC 33.6 % (32.0-36.0); MCV 86 fL (80-95); MPV 8.9 fL (8.0-11.0); Monocytes % 8.5 %; Neutrophils % 70.9 %; Platelet Count 227 10^3/uL (130-400); RBC 4.69 10^6/uL (4.36-5.78); RDW 12.3 % (11.8-14.1); RDW-SD 38.6 fL; WBC 9.51 10^3/uL (4.4-10.8)
[2024-04-24 14:31] LABS: ESR 10 mm/hr (0-15)
[2024-04-24 14:44] LABS: ALT 20 U/L (16-63); AST 17 U/L (15-37); Albumin 3.7 g/dL (3.4-5.0); Alkaline Phosphatase 70 U/L (46-116); Anion Gap 2.7 mmol/L (3-11); BUN 6 mg/dL (7-18); Bilirubin, Total 0.41 mg/dL (0.2-1.0); C-Reactive Protein 1.09 mg/dL (<or=0.5); CO2 32.3 mmol/L (21.0-32.0); CREATININE 0.6 mg/dL (0.70-1.30); Calcium 8.9 mg/dL (8.5-10.1); Chloride 105 mmol/L (98-107); Estimated GFR 133.18 (mL/min/1.73m2); Glucose 84 mg/dL (74-106); Potassium 4.4 mmol/L (3.5-5.1); Sodium 140 mmol/L (136-145); Total Protein 7.1 g/dL (6.4-8.2)
[2024-04-24] MEDS: Normal Saline 1,000 ML 1000 ML IV (14:55)
[2024-04-24] MEDS: ceFAZolin 1 GM/50 ML BAG IVPB (14:55)
--- NOTE | 2024-04-24 16:30 | DI.CT_ITS ---
Exam(s) CT LOWER EXTREMITY RT W EXAM: CT LOWER EXTREMITY RT W CLINICAL HISTORY: concern for infection in achilles. TECHNIQUE: Imaging Protocol: Axial computed tomography images with coronal and sagittal reformatted images were created and reviewed. CONTRAST MATERIAL: Intravenous: Omnipaque 350. Contrast Volume: 100 ML COMPARISON: CR XR ANKLE RT COMPLETE from 04/24/2024 FINDINGS: Bones: The osseous structures and articular surfaces are intact. Bony alignment is satisfactory. N o cellulitic or osteomyelitic changes are identified. There is no evidence of joint space narrowing or cystic degeneration seen. No lytic or sclerotic lesions are identified. Soft Tissues: The Achilles tendon looks grossly unremarkable on this examination. No radiopaque fore ign body is identified. There is edema seen in the soft tissues around the leg suggesting a cellulit is. Enhancement: No abnormal enhancement is identified. No focal fluid collections are seen to suggest a n abscess. IMPRESSION: 1. Edema seen in the soft tissues of the lower leg and ankle suggesting cellulitis. No focal fluid c ollection is seen to suggest an abscess. 2. Soft tissue laceration posteriorly approximately 2.3 cm superior to the calcaneus. No radiopaque foreign body. RADIATION DOSE DELIVERED: 457.07mGy.cm Total DLP 457.07mGy.cm Total DLP DATA REPOSITORY: All CT scans at this facility are submitted to the National Radiology Data Registry (NRDR) Dose Index Registry (DIR) with the [employer] (ACR). RADIATION OPTIMIZATION: All CT scans at this facility use at least one of these dose optimization te chniques: automated exposure control; mA and/or kV adjustment per patient size (includes targeted exa ms where dose is matched to clinical indication); or iterative reconstruction.
[2024-04-24] MEDS: Normal Saline - Diluent 50 ML VIAL IJ (16:43)
[2024-04-24] MEDS: Omnipaque 350 MG/ML 100 ML BTL IJ (16:44)
--- NOTE | 2024-04-24 18:26 | W.EDPROG ---
Date of service: 04/24/24 Time of Service: 16:00 Medical Decision Making Handoff report received from Vidya PAULA, daytime LOUIE. Please see her note for complete HPI, ROS, and physical exam. Elroy is a 28-year-old male presents to the emergency department today for evaluation of laceration to his right ankle, no systemic symptoms. He reports that he stepped on a sarahi jar, sustained laceration to his Achilles 4 days ago. 2 days ago it started developing redness, swelling, and pain. Pain and swelling extends up the calf and into the foot. V-shaped laceration noted to Achilles, scant surrounding erythema. Distal sensation and movement intact. Mild edema to R calf. Workup overall reassuring, slightly elevated CRP at 1.09. Concern for possible abscess. CT obtained, no focal fluid collection suggesting abscess seen. While in the emergency department Ancef given. Discussed case with Dr. Daly, orthopedic surgeon. Reviewed patient presentation, physical exam, and CT scan. This is most consistent with cellulitis. Recommends use of Cipro for cellulitis 750 mg twice daily x 7 days with follow-up in 2 days for reassessment. Discussed plan of care with patient, he is agreeable to plan of care. Imaging Data Radiologic Study: Radiologist's impression: Exam(s) CT LOWER EXTREMITY RT W EXAM: CT LOWER EXTREMITY RT W CLINICAL HISTORY: concern for infection in achilles. TECHNIQUE: Imaging Protocol: Axial computed tomography images with coronal and sagittal reformatted images were created and reviewed. CONTRAST MATERIAL: Intravenous: Omnipaque 350. Contrast Volume: 100 ML COMPARISON: CR XR ANKLE RT COMPLETE from 04/24/2024 FINDINGS: Bones: The osseous structures and articular surfaces are intact. Bony alignment is satisfactory. No cellulitic or osteomyelitic changes are identified. There is no evidence of joint space narrowing or cystic degeneration seen. No lytic or sclerotic lesions are identified. Soft Tissues: The Achilles tendon looks grossly unremarkable on this examination. No radiopaque foreign body is identified. There is edema seen in the soft tissues around the leg suggesting a cellulitis. Enhancement: No abnormal enhancement is identified. No focal fluid collections are seen to suggest an abscess. IMPRESSION: 1. Edema seen in the soft tissues of the lower leg and ankle suggesting cellulitis. No focal fluid collection is seen to suggest an abscess. 2. Soft tissue laceration posteriorly approximately 2.3 cm superior to the calcaneus. No radiopaque foreign body Quality:SDOH Health Related Social Needs: No Data to Display Sign Out Sign Out Data: Sign Out Comment: Care transitioned with CT results and orthopedic consult pending. Concerned that laceration over achilles may have lead to deeper infection . Receiving IV abx, hemodynamically stable. Last updated by Vidya Ojeda PA at 04/24/24 16:37 Discharge Plan Discharge Details Chief Complaint: Cellulitis Primary Care Provider: Ronen Yi ED Provider: Lyubov Ross Home Meds and New Rx's Prescriptions: No Action buprenorphine 300 mg/1.5 mL solution, extended rel syringe 300 mg subcut QMONTH Qty: 1.5 0RF
[2024-04-24 18:47] VITALS: BP 146/67; PULSE 67; RESP 16; TEMP 37.4; O2SAT 100
[2024-04-24 18:59] VITALS: BP 146/67; PULSE 67; RESP 16; TEMP 37.4; O2SAT 100
[2024-04-24 19:02] VITALS: BP 146/67; PULSE 67; RESP 16; TEMP 37.4; O2SAT 100
== END 2024-04-24 19:02 | disposition home or self-care (01) ==
PROVIDERS: Physician Assistant; Emergency Provider Nurse Practitioner Family; PCP Nurse Practitioner Family
DX: S91.011D Laceration without foreign body, right ankle, subsequent encounter (principal); L03.115 Cellulitis of right lower limb; F17.210 Nicotine dependence, cigarettes, uncomplicated; W25.XXXD Contact with sharp glass, subsequent encounter
CPT/HCPCS: 00123; 36415; 80053; 85652; 96365; 96366; 99285; 73610; 73701; 85025; 86140; 93971; J0690; J3490

== ENCOUNTER 2024-06-06 12:04 | Emergency (ER) | payer MEDICAID, SELFPAY ==
[2024-06-06 12:10] VITALS: BP 123/70; PULSE 85; RESP 16; TEMP 37; O2SAT 97
[2024-06-06] MEDS: Amoxicillin 875/Clav. 125 TAB PO (13:24)
[2024-06-06] MEDS: Amox. 875/Clav. 125, 2 TABS/BTL 1 TAB PO (13:24)
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
== END 2024-06-06 13:31 | disposition home or self-care (01) ==
PROVIDERS: Emergency Provider Emergency Medicine; PCP Nurse Practitioner Family
DX: S90.822A Blister (nonthermal), left foot, initial encounter (principal); B96.89 Other specified bacterial agents as the cause of diseases classified elsewhere; X58.XXXA Exposure to other specified factors, initial encounter; Y93.01 Activity, walking, marching and hiking; Y92.89 Other specified places as the place of occurrence of the external cause; F17.210 Nicotine dependence, cigarettes, uncomplicated
CPT/HCPCS: 99283; 87070; 87205

== ENCOUNTER 2024-07-01 23:00 | Outpatient (REF) | payer MEDICAID, SELFPAY | END 2024-07-01 23:01 | disposition home or self-care (01) | LOC: NCHCN 23:00 | PROVIDERS: PCP Nurse Practitioner Family; Visit Provider Nurse Practitioner Family | DX: L02.91 Cutaneous abscess, unspecified (principal) | CPT/HCPCS: 87077; 87070; 87186; 87205 ==

== ENCOUNTER 2024-09-05 17:38 | Emergency (ER) | payer MEDICAID, SELFPAY ==
--- NOTE | 2024-09-05 17:45 | RT.EKG_ITS ---
APPROVED REPORT Exam: Resting ECG Reason for Exam: chest pain Patient Location: E HR:71 bpm ECG Measurements Heart Rate 71 AXIS UT 134 P 73 QRSd 96 QRS 72 QT 378 T 27 QTc 410 Conclusion Sinus rhythm...normal P axis, V-rate 60- 99
[2024-09-05 17:54] VITALS: BP 132/78; PULSE 78; RESP 14; TEMP 36.9; O2SAT 95
--- NOTE | 2024-09-05 18:00 | DI.RAD_ITS ---
Exam(s) XR CHEST 2V PA LATERAL EXAM: XR CHEST 2V PA LATERAL CLINICAL HISTORY: cough TECHNIQUE: 2D digital imaging was performed. Two views. COMPARISON: CR ABD FLAT UPRIGHT PA CHEST from 07/06/2013 FINDINGS: HEART: Normal size. Aorta: Not dilated. PULMONARY VASCULATURE: Normal. MEDIASTINUM: Unremarkable. LUNGS: Clear. PLEURAL SPACE: No pleural effusion or pneumothorax. BONE:Unremarkable for age. SOFT TISSUES: Unremarkable. IMPRESSION: No acute abnormality. DATA REPOSITORY: RADIATION DOSE DELIVERED:
--- NOTE | 2024-09-05 18:02 | ED.GENADUL_ITS ---
Discharge Plan Disposition Patient Disposition: Home Condition: Stable Discharge Details Clinical Impression: Chest pain Primary Care Provider: Ronen Yi ED Provider: Neftali Stockton Home Meds and New Rx's Prescriptions: Continued Brixadi 128 mg/0.36 mL solution, extended rel syringe 128 mg subcut Q28D Discharge Instructions Additional Instructions: Follow-up with your primary care provider in 1 to 2 weeks if not improving If you feel more ill or have new symptoms such as high fevers return to the emergency department for reevaluation HPI General Mode of arrival: ambulatory . Date/Time Provider Initiated Documentation: 09/05/24 17:40 . Limitations to Documentation: no limitations . Information obtained by: patient . History of Present Illness 28 year old M presents to the emergency department with the chief complaint of chest pain, described as moderate, Quality is described as aching, and is localized to the chest. Patient reports no radiation. Patient started experiencing this week(s) (2) and it has been constant. No relieving factors improve symptom(s), No exacerbating factors reported . Patient notes cough; denies fever/chills. Patient did receive the following treatments prior to arrival, none Related Data Home Medications ?Medication ?Instructions ?Recorded ?Confirmed buprenorphine 128 mg/0.36 mL 128 mg subcut Q28D 09/05/24 09/05/24 solution,ext.rel.subcutaneous syringe (Brixadi Monthly) Allergies Allergy/AdvReac Type Severity Reaction Status Date / Time No Known Allergies Allergy Verified 09/05/24 18:00 General Stated Complaint: Chest Pain DORENE: 3 Review of Systems All systems reviewed & are unremarkable except as noted in HPI and below Constitutional Constitutional: Denies chills, Denies fever(s) and Denies weakness Cardiovascular Cardiovascular: Reports chest pain and Denies dyspnea Respiratory Respiratory: Reports cough and Denies dyspnea Gastrointestinal Gastrointestinal: Denies abdominal pain, Denies nausea and Denies vomiting Integumentary/Breasts Skin/Breast: Denies rash Neurologic Neurologic: Denies weakness Exam Const General: no acute distress Orientation: alert HENMT Head: normal to inspection Ears: external ears normal General nose exam: external nose normal Mouth: moist mucous membranes Eyes General: appearance normal, both eyes and all related structures Neck Neck: normal visual inspection Resp Effort & Inspection: normal respiratory effort and able to speak in complete sentences Auscultation: clear to auscultation bilaterally Cardio Jugular venous pressure: no JVD Rate: regular rate Heart Sounds: no murmurs GI Palpation: soft and nontender Skin General skin exam: no rashes or lesions noted Neuro General: patient alert and patient oriented x3 Extrem General: normal to inspection Psych Mental Status: mental status grossly normal Course Vital Signs Vital signs: Vital Signs Temperature 36.9 C 09/05/24 17:54 Pulse 78 09/05/24 17:54 Respiratory Rate 14 09/05/24 17:54 Blood Pressure 132/78 09/05/24 17:54 Pulse Oximetry 95 09/05/24 17:54 Temperature 36.9 C 09/05/24 17:54 Temperature Source Oral 09/05/24 17:54 Pulse 78 09/05/24 17:54 Respiratory Rate 14 09/05/24 17:54 Blood Pressure 132/78 09/05/24 17:54 Blood Pressure Position Sitting 09/05/24 17:54 Pulse Oximetry 95 09/05/24 17:54 Oxygen Delivery Method Room Air 09/05/24 17:54 Oxygen Flow Rate 0 09/05/24 17:54 Pain Level 4 09/05/24 17:54 Medical Decision Making 1-year-old male with a history of chronic smoking comes in with left-sided chest pain especially with coughing for 2 weeks. Denies any fevers, IV drug use, vomiting, diaphoresis. He has reproducible tenderness over the left lateral chest to the 4th through 6th ribs in the anterior x-ray line. He has clear lung sounds, there is no crepitus, no JVD, no leg swelling or calf tenderness. Suspect chest wall pain from coughing we will check troponins, CBC, CMP and a chest x-ray. He has no tearing back pain and equal peripheral pulses so doubt dissection, has no evidence of DVT on exam, no significant tachycardia or hypoxia so doubt PE. X-ray unremarkable, blood work unremarkable, given he has had symptoms for 2 weeks do not feel delta troponin is indicated. I suspect chest wall pain from smoker's cough, he is stable for discharge he will follow-up with PCP, return precautions given Differential Diagnosis Differential Diagnosis: Bronchitis, smoker's cough, pneumonia, NSTEMI Lab Data Lab results reviewed: Yes I reviewed the patient's lab results. ECG Data Attestation: I personally reviewed and interpreted this ECG (s) as follows: Prior ECG tracings: not available for review Interpretation: sinus rate of 71 pr 134 no stemi Quality:SDOH Health Related Social Needs: No Data to Display PFSH All Active Problems Chest pain (Acute) Nasal septal deviation (Acute) Abnormal stools (Acute) Abdominal pain (Acute) Cocaine abuse in remission (Acute) Depression (Chronic) Insomnia (Acute 09/16/13) PTSD (post-traumatic stress disorder) (Acute 09/16/13) Smoker (Acute 01/03/13) Adopted (Acute 09/16/13) Depression (Acute 09/16/13) Opiate addiction (Acute 09/16/13) Reactive cervical lymphadenopathy (Acute 01/03/13) TMJ arthralgia (Acute) Anxiety (Acute 11/22/13) 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 Brother No problems noted. Social History Smoking/Tobacco Use Status: Current every day Tobacco Type: cigarettes Tobacco: How many years used: 10 Quit status: has quit before Second Hand Exposure: Yes Smoking risk assessment performed?: Yes Alcohol Intake: never Drug use: Occasionally Substance use type: crack/cocaine Caregiver/Support person: No Household members: none Housing: apartment Communication Needs: None Do you need help understanding health information?: Never Pets and animals: No Sexually active: Yes Do you think of yourself as: straight/heterosexual What is your relationship status?: living with partner How often do you talk on the phone with friends or family?: three or more times per week How often do you get together with friends or relatives?: once per week How often do you attend congregation or yazidi services?: 1-3 times per year Do you belong to any clubs or organized social groups?: no Panel score (0-1 are the most socially isolated patients): 2 What type of physical activity do you participate in: walking Duration: 30-45 minutes/day Frequency: decline to answer Cammy/Roman Catholic: None Special cammy needs: No Seatbelt use: always Helmet use: Yes Helmet use: always Drive intox or ride w/intox corporate driver: No Do you feel safe at home: Yes Do you feel safe in your relationship?: Yes
[2024-09-05 18:44] LABS: ALT 22 U/L (16-63); AST 16 U/L (15-37); Albumin 3.8 g/dL (3.4-5.0); Alkaline Phosphatase 91 U/L (46-116); Anion Gap 5.6 mmol/L (3-11); BUN 12 mg/dL (7-18); Bilirubin, Total 0.21 mg/dL (0.2-1.0); CO2 30.4 mmol/L (21.0-32.0); CREATININE 0.8 mg/dL (0.70-1.30); Calcium 9.4 mg/dL (8.5-10.1); Chloride 108 mmol/L (98-107); Glucose 119 mg/dL (74-106); Magnesium 1.9 mg/dL (1.8-2.4); Potassium 4.6 mmol/L (3.5-5.1); Sodium 144 mmol/L (136-145); Total Protein 7.6 g/dL (6.4-8.2)
[2024-09-05 18:45] LABS: Troponin I < 4 ng/L (<or=76)
[2024-09-05 19:05] LABS: COVID-19 PCR Negative (Negative); Influenza A PCR Negative (Negative); Influenza B PCR Negative (Negative); RSV PCR Negative (Negative)
[2024-09-05 19:08] VITALS: BP 137/51; PULSE 72; RESP 16; O2SAT 96
[2024-09-05 19:20] LABS: Procalcitonin < 0.05 ng/mL
[2024-09-05 19:42] LABS: Source Nasopharynx
== END 2024-09-05 19:10 | disposition home or self-care (01) ==
PROVIDERS: Emergency Provider Emergency Medicine; PCP Nurse Practitioner Family
DX: R07.9 Chest pain, unspecified (principal); R05.9 Cough, unspecified; F17.210 Nicotine dependence, cigarettes, uncomplicated; Z79.899 Other long term (current) drug therapy
CPT/HCPCS: 80053; 84145; 87637; 93005; 99285; 71046; 83735; 84484; 93010; 99284

== ENCOUNTER 2025-09-25 13:21 | Emergency (ER) | payer OTHER, SELFPAY ==
[2025-09-25 13:26] VITALS: BP 121/85; PULSE 64; RESP 16; TEMP 36.8; O2SAT 97
--- NOTE | 2025-09-25 14:15 | DI.RAD_ITS ---
Exam(s) XR HAND RT COMPLETE EXAM: XR HAND RT COMPLETE CLINICAL HISTORY: R hand/thumb pain x 3 days. TECHNIQUE: 2D digital imaging was performed. Three views. COMPARISON: CT RT.UPPER EXTREMITY WO CONTRAST from 04/04/2018 CR RIGHT HAND COMPLETE from 04/04/2018 FINDINGS: BONES: No acute fracture is present. There is an old fracture deformity at the base of the 1st metacarpal. There adjacent chronic appearing bony densities. No bony destructive lesion is seen. JOINTS: No dislocation present. Degenerative changes of the distal interphalangeal joint of the little finger. SOFT TISSUE: Normal. IMPRESSION: Old fracture at the base of the 1st metacarpal. No new abnormalities are identified. DATA REPOSITORY: RADIATION DOSE DELIVERED:
[2025-09-25 14:22] VITALS: BP 133/77; PULSE 62; RESP 16; O2SAT 95
--- NOTE | 2025-09-25 15:40 | W.ED.GENAD ---
Discharge Plan Disposition Patient Disposition: Home Discharge Details Clinical Impression: Fracture of thumb, right, closed Primary Care Provider: Ronen Yi ED Provider: Jason Walters Home Meds and New Rx's Prescriptions: No Action Brixadi 128 mg/0.36 mL solution, extended rel syringe 128 mg subcut Q28D ibuprofen [Advil] 200 mg tablet 600 mg PO TID buprenorphine-naloxone 8-2 mg film 3 film sublingual DAILY Rx Instructions: use only 2 strips/tabs in mouth at one time, 1 under (each) side of tongue duloxetine 30 mg capsule,delayed release(DR/EC) 30 mg PO DAILY Discharge Instructions Instructions: Finger Fracture ED Additional Instructions: Your x-rays today are consistent with a old injury of the base of the right thumb, which may be because you sustained the injury several days ago. However, given your recent injury I will refer you to the orthopedist iron molder helper and consider this an acute (new) injury. Please use the provided wrist brace, protect your thumb, and we'll have you follow up in the clinic. Should your symptoms worsen, or if you develop new concerning symptoms, please return immediately emergency department for further evaluation. Stand Alone Forms: Portal Information Referrals: Ravin Mendez MD [ [facility] STAFF PHYSICIAN, Orthopaedic Surgical] - 1 week Discharge Data Discharge Date/Time-TO BE ENTERED AT DEPARTURE: 09/25/25 16:19 HPI General Date/Time Provider Initiated Documentation: 09/25/25 13:31. HPI Narrative: MDM/Narrative: 29-year-old male presents 3 days after injury to his right thumb and wrist. Vital signs are normalized. Exam notable for significant ecchymosis of the thenar eminence extending down the wrist, patient moves pain with manipulation of the right thumb, and limited adduction of the thumb. No other traumatic injuries noted on examination. X-ray shows no acute injury however a old fracture deformity at the base of the first metacarpal injury as per radiology. When questioned the patient denies any prior injuries to that hand. Given the significant ecchymosis and denial of prior injury will consider this in the acute fracture which appears chronic due to patient's delayed presentation. Will refer to orthopedics and placed in thumb spica splint. Disposition: Snf HPI: 29-year-old male presents for evaluation of right hand injury. Patient states that 3 days ago fell onto the hand, causing an injury with pain swelling and bruising that has developed at the base of his thumb extending to the wrist. Denies any other injuries. ROS: Negative besides as mentioned above Exam: Gen: A&O NAD HEENT: NCAT, EOMI, not icteric. External ears normal. No rhinorrhea. Moist mucous membranes. Neck: Supple, full range of motion, no observable masses, No meningeal sign. Lungs: No Respiratory distress. CV: RRR, no edema. Abdomen: Soft, nondistended, No rebound tenderness. MSK: There is ecchymosis that is stemming from the thenar eminence to the distal right forearm. There is pain with palpation of the base of the right thumb, and pain with passive range of motion of the right thumb. Mild swelling to the base of the right thumb. Patient has limited active abduction of the thumb, however flexion extension opposition palmar adduction and radial abduction are all intact. Sensation and capillary refill all within normal limits of all 5 digits of the right hand. Skin: No rashes, petechiae, lesions. Normal color per patient. Neuro: Normal Gait, Grossly intact. Psych: Appropriate for situation. Radiology: Accession No. : [id number] Creator : QUINTON SALCEDO Dictator : QUINTON SALCEDO Pediatric Surgeon : Engineer Automated Equipment : QUINTON SALCEDO Approver2 : Report Date : 09/25/2025 15:32:27 Exam(s) XR HAND RT COMPLETE EXAM: XR HAND RT COMPLETE CLINICAL HISTORY: R hand/thumb pain x 3 days. TECHNIQUE: 2D digital imaging was performed. Three views. COMPARISON: CT RT.UPPER EXTREMITY WO CONTRAST from 04/04/2018 CR RIGHT HAND COMPLETE from 04/04/2018 FINDINGS: BONES: No acute fracture is present. There is an old fracture deformity at the base of the 1st metacarpal. There adjacent chronic appearing bony densities. No bony destructive lesion is seen. JOINTS: No dislocation present. Degenerative changes of the distal interphalangeal joint of the little finger. SOFT TISSUE: Normal. IMPRESSION: Old fracture at the base of the 1st metacarpal. No new abnormalities are identified. DATA REPOSITORY: RADIATION DOSE DELIVERED: Related Data Home Medications ?Medication ?Instructions ?Recorded ?Confirmed buprenorphine 128 mg/0.36 mL 128 mg subcut Q28D 09/05/24 09/25/25 solution,ext.rel.subcutaneous syringe (Brixadi Monthly) buprenorphine 8 mg-naloxone 2 mg 3 film sublingual DAILY 09/25/25 09/25/25 sublingual film duloxetine 30 mg capsule,delayed 30 mg PO DAILY 09/25/25 09/25/25 release ibuprofen 200 mg tablet (Advil) 600 mg PO TID 09/25/25 09/25/25 Allergies Allergy/AdvReac Type Severity Reaction Status Date / Time No Known Allergies Allergy Verified 09/25/25 13:28 General Stated Complaint: Orthopedic DORENE: 4 Course Vital Signs Vital signs: Vital Signs Temperature 36.8 C 09/25/25 13:26 Pulse 64 09/25/25 13:26 Respiratory Rate 16 09/25/25 13:26 Blood Pressure 121/85 09/25/25 13:26 Pulse Oximetry 97 09/25/25 13:26 Temperature 36.8 C 09/25/25 13:26 Pulse 62 09/25/25 14:22 Respiratory Rate 16 09/25/25 14:22 Respiratory Effort Normal, Non-Labored 09/25/25 14:22 Respiratory Depth Normal 09/25/25 14:22 Respiratory Pattern Normal 09/25/25 14:22 Blood Pressure 133/77 09/25/25 14:22 Blood Pressure Mean 95 09/25/25 14:22 Blood Pressure Position Sitting 09/25/25 14:22 Pulse Oximetry 95 09/25/25 14:22 Oxygen Delivery Method Room Air 09/25/25 14:22 Oxygen Flow Rate 0 09/25/25 14:22 PFSH All Active Problems Fracture of thumb, right, closed (Acute) Nasal septal deviation (Acute) Abnormal stools (Acute) Abdominal pain (Acute) Cocaine abuse in remission (Acute) Depression (Chronic) Insomnia (Acute 09/16/13) PTSD (post-traumatic stress disorder) (Acute 09/16/13) Smoker (Acute 01/03/13) Adopted (Acute 09/16/13) Depression (Acute 09/16/13) Opiate addiction (Acute 09/16/13) Reactive cervical lymphadenopathy (Acute 01/03/13) TMJ arthralgia (Acute) Anxiety (Acute 11/22/13) 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 Brother No problems noted. Social History Smoking/Tobacco Use Status: Current every day Tobacco Type: cigarettes Tobacco: How many years used: 10 Quit status: has quit before Second Hand Exposure: Yes Smoking risk assessment performed?: Yes Alcohol Intake: never Drug use: Occasionally Substance use type: crack/cocaine Caregiver/Support person: No Household members: none Housing: apartment Communication Needs: None Do you need help understanding health information?: Never Pets and animals: No Sexually active: Yes Do you think of yourself as: straight/heterosexual What is your relationship status?: living with partner How often do you talk on the phone with friends or family?: three or more times per week How often do you get together with friends or relatives?: once per week How often do you attend rastafari or jehovah's witness services?: 1-3 times per year Do you belong to any clubs or organized social groups?: no Panel score (0-1 are the most socially isolated patients): 2 What type of physical activity do you participate in: walking Duration: 30-45 minutes/day Frequency: decline to answer Cammy/Jew: None Special cammy needs: No Seatbelt use: always Helmet use: Yes Helmet use: always Drive intox or ride w/intox taxi driver supervisor: No Do you feel safe at home: Yes Do you feel safe in your relationship?: Yes
== END 2025-09-25 16:19 | disposition home or self-care (01) ==
PROVIDERS: Emergency Provider General Practice; PCP Nurse Practitioner Family
DX: S62.234A Other nondisplaced fracture of base of first metacarpal bone, right hand, initial encounter for closed fracture (principal); W19.XXXA Unspecified fall, initial encounter
CPT/HCPCS: 99283 ×2; 29125; 73130